=== PATIENT | male | born 1975 | race Caucasian/White ===

== ENCOUNTER 2016-06-30 04:58 | Inpatient (IN) | payer BC, OTHER ==
[2016-06-30] VITALS (10 sets, daily range): BP systolic 121–134; BP diastolic 69–82; PULSE 65–90; TEMP 36.4–36.7; O2SAT 93–97; Ht 160 cm; Wt 109.0 kg
[~2016-06-30] VITALS: Ht 160 cm; Wt 109.0 kg
[~2016-06-30 04:58] MED LIST: HYDR25TA5 PO
[2016-06-30] MEDS ORDERED: ONDANSETRON INJ 2 MG/ML 2 ML VIAL IV STA (05:09)
[2016-06-30] MEDS ORDERED: SODIUM CHLORIDE 0.9% 1000ML 1,000 ML IV ONE (05:15)
[2016-06-30] MEDS ORDERED: OPTIRAY 320 IV PRN (05:15)
[2016-06-30] MEDS ORDERED: FENTANYL CITRATE INJ 50 MCG/1 ML 2 ML VIAL IV ONE (05:15)
[2016-06-30 05:19] LABS: BASO % 0.5 %; BASO ABS # 0.05 K/uL (0-0.2); COMPLETE YES; EOS % 2.3 %; HEMATOCRIT 47.2 % (42-52); IG% 0.2 %; LYMPH % 38.1 %; LYMPH ABS # 3.72 K/uL (1.2-3.4); MEAN CELL VOLUME 89.7 fL (80-100); MEAN CORPUSCULAR HEMOGLOBIN 31.7 pg (25-34); MEAN CORPUSCULAR HGB CONC 35.4 g/dl (32-36); MEAN PLATELET VOLUME 10.5 fL (7.4-10.4); MONO % 12.9 %; PLATELET COUNT 276 K/uL (130-400); RED BLOOD COUNT 5.26 M/uL (4.7-6.1); WHITE BLOOD COUNT 9.76 K/uL (4.8-10.8)
[2016-06-30 05:40] LABS: ALB/GLOB RATIO 1.2 (0.9-2); ALKALINE PHOSPHATASE 97 U/L (45-117); ALT/SGPT 44 U/L (12-78); BLOOD UREA NITROGEN 17 mg/dl (7-18); BUN/CREATININE RATIO 13.9 (10-20); CALCIUM 9.1 mg/dl (8.5-10.1); CARBON DIOXIDE 31 mmol/L (21-32); CHLORIDE 104 mmol/L (98-107); GLUCOSE 98 mg/dl (70-99); SODIUM 142 mmol/L (136-145)
[2016-06-30 05:42] LABS: ISTAT CREATININE 1.1 mg/dl (0.6-1.3); ISTAT HEMOGLOBIN 16.3 g/dl (14.0-18.0); ISTAT IONIZED CALCIUM 1.17 mmol/l (1.12-1.32)
[2016-06-30 05:56] LABS: POTASSIUM 3.4 mmol/L (3.5-5.1)
[2016-06-30] MEDS ORDERED: HYDROmorphone INJ 1 MG/ML SYR IV STA (06:30)
[2016-06-30] MEDS ORDERED: HYDROmorphone INJ 1 MG/ML SYR IV PRN ×4 (06:30→14:30)
[2016-06-30] MEDS ORDERED: HYDROmorphone INJ 1 MG/ML SYR ONE (06:31)
--- NOTE | 2016-06-30 06:44 | EMERGENCY ROOM VISIT NOTE ---
ED Visit Note First contact with patient: 05:00 I have personally evaluated and examined this patient. I agree with assessment and plan of Bo Hanks PA-C.
[2016-06-30] MEDS ORDERED: IRBE1TAB48 PO (06:49)
[2016-06-30] MEDS ORDERED: PANT40TA2 PO (06:49)
[2016-06-30 06:51] LABS: URINE APPEARANCE CLEAR (CLEAR); URINE BILIRUBIN NEG (NEG); URINE COLOR YELLOW; URINE NITRITE NEG (NEG); URINE PH 5.5 (4.5-7.5); URINE SPECIFIC GRAVITY 1.032 (1.000-1.030); UROBILINOGEN NEG (NEG); ZZUR CULT IF INDIC CLEAN CATCH NO
[2016-06-30 06:57] LABS: MANUAL MICROSCOPIC REQUIRED? NO; REVIEW REQ? NO
--- NOTE | 2016-06-30 07:01 | History and Physical ---
History & Physical Date & Time of Service: June 30, 2016 at 06:52 Chief Complaint: abd pain Primary Care Physician: Anthony Tanner M.D. History of Present Illness Source: patient pt is a 40 years old male who presents to ER for 2 months history RUQ pain, worse pain last 3 hours, some nausea, no vomiting, pt denies fever, pt had U/S and CT scan Dx- acute cholecystitis with gallstones, Past Medical/Surgical History Medical Problems: (1) Abdominal pain Status: Resolved (2) Anxiety Status: Chronic (3) Gastritis Status: Resolved (4) Hyperlipidemia Nec/Nos Status: Chronic (5) Hypertension Status: Chronic (6) Hypertension Nos Status: Chronic (7) Lumbago Status: Chronic (8) Rib pain Status: Resolved Surgical Problems: (1) S/P knee surgery Status: Resolved Social History Smoking Status: Never Smoker Smokeless Tobacco Use: No Alcohol Use: occasionally Drug Use: none Marital Status: Occupational Status: employed Multi-Drug Resistant Organisms History of MDRO: No Allergies Coded Allergies: POLLEN (Verified Allergy, Intermediate, CONGESTION, 06/30/16) Home Medications Scheduled Hydrochlorothiazide (Hydrochlorothiazide), 25 MG PO QPM Irbesartan (Irbesartan), 150 MG PO QAM Pantoprazole (Pantoprazole Sodium), 40 MG PO BID Review of Systems Constitutional: No chills, No fatigue, No fever, No problem reported, No sweats , No weakness, No weight loss Eyes: No diplopia, No discharge, No eye pain, No problem reported, No redness, No worsening of vision ENT: No dental problems, No hearing loss, No nasal symptoms, No problem reported, No sore throat, No tinnitus, No trouble swallowing, No unusual epistaxis Respiratory: No cough, No dyspnea at rest, No dyspnea on exertion, No hemoptysis, No problem reported, No shortness of breath, No sputum, No wheezing Cardiovascular: No PND, No chest pain, No claudication, No edema, No orthopnea , No palpitations, No problem reported Abdomen: + nausea (RUQ pain, ), + pain Musculoskeletal: No calf pain, No joint pain, No muscle pain, No problem reported, No swelling Genitourinary - Male: No dysuria, No hematuria, No impotence, No lesions, No penile discharge, No problem reported, No urinary frequency, No urinary hesitancy, No urinary incontinence, No urinary retention, No urinary urgency Neurologic: No balance problems, No memory loss, No numbness/tingling, No paralysis, No problem reported, No vertigo, No weakness Psychiatric: No anhedonism, No anxiety, No depression symptoms, No insomnia, No problem reported, No substance abuse Endocrine: No excessive thirst, No excessive urination, No fatigue, No problem reported Hematologic / Lymphatic: No abnormal bleeding/bruising, No clotting problems, No night sweats, No problem reported, No swollen lymph nodes Physical Exam Vital Signs Date Time Temp Pulse Resp B/P Pulse Ox O2 Delivery O2 Flow Rate FiO2 06/30/16 05:58 79 17 131/74 96 Room Air 06/30/16 05:09 83 06/30/16 05:04 36.6 83 27 145/93 98 Room Air General Appearance: WD/WN, no apparent distress Head: normocephalic Eyes: normal inspection ENT: normal ENT inspection, hearing grossly normal Neck: supple, no adenopathy, no JVD Respiratory/Chest: normal breath sounds Cardiovascular: regular rate, rhythm, no edema, no gallop, no JVD Abdomen/GI: soft, no organomegaly, no pulsatile mass (RUQ tenderness, ), + tenderness Extremities/Musculoskelatal: normal inspection, no calf tenderness, normal capillary refill Neurologic/Psych: no motor/sensory deficits, alert, normal mood/affect Skin: normal color, warm/dry Diagnostics Laboratory Results Results Past 24 Hours Test 06/30/16 04:40 06/30/16 05:29 06/30/16 05:35 06/30/16 06:35 Range/Units White Blood Count 9.76 4.8-10.8 K/uL Red Blood Count 5.26 4.7-6.1 M/uL Hemoglobin 16.7 14.0-18.0 g/dL Hematocrit 47.2 42-52 % Mean Corpuscular Volume 89.7 80-100 fL Mean Corpuscular Hemoglobin 31.7 25-34 pg Mean Corpuscular Hemoglobin Concent 35.4 32-36 g/dl Platelet Count 276 130-400 K/uL Mean Platelet Volume 10.5 7.4-10.4 fL Neutrophils (%) (Auto) 46.0 % Lymphocytes (%) (Auto) 38.1 % Monocytes (%) (Auto) 12.9 % Eosinophils (%) (Auto) 2.3 % Basophils (%) (Auto) 0.5 % Neutrophils # (Auto) 4.49 1.4-6.5 K/uL Lymphocytes # (Auto) 3.72 1.2-3.4 K/uL Monocytes # (Auto) 1.26 0.11-0.59 K/uL Eosinophils # (Auto) 0.22 0-0.5 K/uL Basophils # (Auto) 0.05 0-0.2 K/uL RDW Standard Deviation 42.0 36.4-46.3 fL RDW Coefficient of Variation 12.8 11.5-14.5 % Immature Granulocyte % (Auto) 0.2 % Immature Granulocyte # (Auto) 0.02 0.00-0.02 K/uL Sodium Level 142 136-145 mmol/L Potassium Level 3.4 3.5-5.1 mmol/L Chloride Level 104 98-107 mmol/L Carbon Dioxide Level 31 21-32 mmol/L Anion Gap 7.0 17.0 16-25 mmol/L Blood Urea Nitrogen 17 7-18 mg/dl Creatinine 1.20 0.60-1.40 mg/dl Est Creatinine Clear Calc Drug Dose 89.2 ml/min Estimated GFR () 86.5 Estimated GFR (Non- 74.7 BUN/Creatinine Ratio 13.9 10-20 Random Glucose 98 70-99 mg/dl Calcium Level 9.1 8.5-10.1 mg/dl Total Bilirubin 0.8 0.2-1 mg/dl Aspartate Amino Transf (AST/SGOT) 17 15-37 U/L Alanine Aminotransferase (ALT/SGPT) 44 12-78 U/L Alkaline Phosphatase 97 45-117 U/L Total Protein 7.8 6.4-8.2 gm/dl Albumin 4.3 3.4-5.0 gm/dl Globulin 3.5 2.5-4.0 gm/dl Albumin/Globulin Ratio 1.2 0.9-2 Lipase 156 73-393 U/L Bedside Hemoglobin 16.3 14.0-18.0 g/dl Bedside Hematocrit 48 42-52 % Bedside Sodium 142 135-144 mEq/L Bedside Potassium 3.3 3.3-5.0 mEq/L Bedside Chloride 100 101-112 mEq/L Bedside Total CO2 29 24-31 mEq/l Bedside Blood Urea Nitrogen 18 7-18 mg/dl Bedside Creatinine 1.1 0.6-1.3 mg/dl Bedside Glucose (other) 100 70-99 mg/dl Bedside Ionized Calcium (Lambert) 1.17 1.12-1.32 mmol/l Lactic Acid Level 1.7 0.4-2.0 mmol/L Diagnostic Radiology reviewed- U/S CT scan- gallstone with cholecystitis Impression Assessment and Plan IMP: Acute cholecystitis, cholelithiasis Plan: admit to hospital IV fluid, antibiotic, control pain, pt will have laparoscopic cholecystectomy, possible open or cholangiogram, D/W benefits, risks and alternatives of the procedure, the risks- infection, bleeding, injury CBD, bowel, may need ERCP, , pt and his understood, he and his agree with the plan, I answered all questions, ASA Classification: ASA Class II Level of Care Med/Surg VTE Prophylaxis VTE Risk Assessment Done? Y/N: Yes Risk Level: Moderate Given or contraindicated: SCD's Note Total Time: Critical Care 30 - 74 minutes
--- NOTE | 2016-06-30 07:10 | DIAGNOSTIC IMAGING REPORT ---
ABDOMINAL ULTRASOUND, RIGHT UPPER QUADRANT HISTORY: Severe abdominal pain. COMPARISON: Right upper quadrant ultrasound December 06, [address] of the abdomen and pelvis June 30, 2016. FINDINGS: Increased hepatic echogenicity represents fatty infiltration. The pancreatic body is normal. The head and tail are obscured. Caliber of the common bile duct is at the upper limits of normal, measuring approximately 6 mm. The gallbladder is mildly distended. There is a small amount of sludge within the gallbladder. No gallbladder wall thickening is noted. The 1.1 cm calculus within the gallbladder neck or cystic duct on CT from earlier today is not visualized by sonography. There is no right hydronephrosis. IMPRESSION: 1. Mild gallbladder distention and small amount of sludge within the gallbladder. The 1.1 cm calculus within the gallbladder neck or cystic duct on CT from earlier today is obscured on this exam. Overall, the findings raise the possibility of acute cholecystitis and a hepatobiliary scan could be obtained as indicated. 2. No biliary ductal dilatation. 3. Fatty liver. Electronically signed by: Ad Fung M.D. 06/30/2016 7:09 AM Dictated Date/Time: 06/30/2016 7:03 AM
[2016-06-30] MEDS ORDERED: ONDANSETRON INJ 2 MG/ML 2 ML VIAL IV PRN ×3 (07:15→14:30)
--- NOTE | 2016-06-30 07:42 | DIAGNOSTIC IMAGING REPORT ---
ABDOMEN AND PELVIS CTA WITH IV CONTRAST CT DOSE: 1544.52 mGy.cm HISTORY: Severe mid abdominal pain. TECHNIQUE: Multiaxial CT images of the abdomen and pelvis were performed following the use of intravenous contrast. COMPARISON STUDY: Abdominal ultrasound 12/06/2015. FINDINGS: Linear densities at the lower lobes favor subsegmental atelectasis. No pneumoperitoneum. No pneumatosis. No fractures within the visualized osseous structures. The abdominal aorta is normal in course and caliber. The major branches and iliac vessels are widely patent. Minimal calcified plaque within the distal abdominal aorta. Bilateral renal arteries are patent. No hepatic or splenic masses. The adrenal glands, pancreas, and kidneys are unremarkable. The bladder is mildly distended. There may be minimal pericholecystic inflammatory change. There is an 11 mm stone at the neck of the gallbladder. Normal bladder. No retroperitoneal lymphadenopathy. No bowel wall thickening or obstruction. Normal appendix. IMPRESSION: 1. No evidence for an abdominal aortic aneurysm. The major arterial branches are widely patent. 2. A 1.1 cm stone at the gallbladder neck. There may be minimal pericholecystic inflammatory change. This is concerning for acute cholecystitis. Clinical correlation recommended. 3. No bowel wall thickening or obstruction. Electronically signed by: Daniel Funez M.D. 06/30/2016 7:41 AM Dictated Date/Time: 06/30/2016 7:34 AM
[2016-06-30] MEDS ORDERED: IV FLUIDS COMPLETED PRN (08:45)
[2016-06-30] MEDS: D5W AND 1/2NSS + 20MEQ KCL 1,000 ML IV SCH ×2 (10:17→20:04)
[2016-06-30] MEDS ORDERED: PROPOFOL IV EMULSION 10 MG/ML 20 ML VIAL IV ONE (11:55)
[2016-06-30] MEDS ORDERED: LIDOCAINE HCL 2% 2 ML VIAL (20MG/ML) ONE (11:55)
[2016-06-30] MEDS ORDERED: ONDANSETRON INJ 2 MG/ML 2 ML VIAL ONE (11:55)
[2016-06-30] MEDS ORDERED: GLYCOPYRROLATE INJ 0.2 MG/ML VIAL ONE (11:55)
[2016-06-30] MEDS ORDERED: NEOSTIGMINE METHYLSULFATE 5 MG/5 ML SYR ONE (11:55)
[2016-06-30] MEDS ORDERED: ROCURONIUM BROMIDE 10 MG/ML 5 ML VIAL ONE (11:55)
[2016-06-30] MEDS ORDERED: DEXAMETHASONE SOD INJ 4 MG/ML VIAL ONE (11:55)
[2016-06-30] MEDS ORDERED: MIDAZOLAM HCL 1 MG/ML 2ML VIAL ONE (11:56)
[2016-06-30] MEDS ORDERED: FENTANYL CITRATE INJ 50 MCG/1 ML 2 ML VIAL ONE ×2 (11:56→12:59)
[2016-06-30] MEDS ORDERED: LIDOCAINE HCL 1% 20 ML VIAL ONE (12:06)
[2016-06-30] MEDS ORDERED: BACITRACIN OINT 15 GM TUBE ONE (12:06)
[2016-06-30] MEDS ORDERED: BUPIVACAINE 0.5 % 5 MG/1 ML MPF 30ML VIAL ONE (12:06)
--- NOTE | 2016-06-30 12:11 | History & Physical Bridge Note ---
H&P Re-Evaluation Bridge Note: I have examined the patient, reviewed the History & Physical and in the interval since the performance of the History & Physical I have noted the following changes of clinical significance: No changes noted
[2016-06-30] MEDS ORDERED: CEFAZOLIN IV 2,000 MG/60 ML D5W IV ONE (12:17)
[2016-06-30] MEDS ORDERED: PHENYLEPHRINE 100MCG/ML 5ML SYR IV PRN (12:30)
[2016-06-30] MEDS ORDERED: EpHEDrine SULFATE INJ 50 MG/ML AMP IV PRN (12:30)
[2016-06-30] MEDS ORDERED: ATROPINE SULFATE 0.1 MG/ML 5ML SYR IV PRN (12:30)
[2016-06-30] MEDS ORDERED: MoRPHine SULFATE 2 MG/ML CARP ONE (13:04)
[2016-06-30] MEDS ORDERED: LABETALOL HCL IV 5 MG/ML 20ML IV ONE (13:13)
[2016-06-30] MEDS ORDERED: D5W AND 1/2NSS + 20MEQ KCL 1,000 ML IV SCH (14:21)
--- NOTE | 2016-06-30 14:21 | [facility] Post Operative Brief Note ---
Immediate Operative Summary Operative Date June 30, 2016. Pre-Operative Diagnosis Acute Cholecystitis, Cholelithiasis Post-Operative Diagnosis Acute Cholecystitis, Cholelithiasis Procedure(s) Performed Laparoscopic Cholecystectomy Surgeon Dr. Joshi Attorney Surgeon(s) DRE Almaguer Estimated Blood Loss 15 ml Findings significant inflammation on gallbladder wall with edema, thickening Fluids (cc crystalloids) 1000ml Specimens A. Gallbladder Drains none Anesthesia general Complication(s) None Disposition Recovery Room / PACU
[2016-06-30] MEDS ORDERED: ACETAMINOPHEN 325 MG TAB PO PRN (14:30)
[2016-06-30] MEDS ORDERED: OXYCODONE/ACETAMINOPHEN 5-325 TAB PO PRN (14:30)
[2016-06-30] MEDS: HYDROmorphone INJ 2 MG/ML SYR/VIAL IV PRN ×3 (14:46→14:56)
--- NOTE | 2016-06-30 15:10 | Anesthesiology Progress Note ---
Anesthesia Post Op Note Date & Time June 30, 2016 at 15:09 Vital Signs Pain Intensity: 6 Vital Signs Past 12 Hours Date Time Temp Pulse Resp B/P Pulse Ox O2 Delivery O2 Flow Rate FiO2 06/30/16 14:50 114/70 06/30/16 14:49 73 20 98 06/30/16 14:49 72 20 06/30/16 14:45 125/75 06/30/16 14:44 79 20 06/30/16 14:44 79 20 98 06/30/16 14:40 92/65 06/30/16 14:39 78 13 06/30/16 14:39 78 13 98 06/30/16 14:37 116/66 06/30/16 14:34 84 16 06/30/16 14:34 84 16 95 06/30/16 14:30 110/74 06/30/16 14:29 85 19 06/30/16 14:29 36.5 82 20 120/81 98 Mask 10 06/30/16 14:29 85 19 120/81 98 06/30/16 08:44 36.6 77 16 121/81 94 Room Air 06/30/16 08:20 36.6 77 16 121/81 Room Air 06/30/16 08:13 Room Air 06/30/16 07:41 96 Room Air 06/30/16 05:58 79 17 131/74 96 Room Air 06/30/16 05:09 83 06/30/16 05:04 36.6 83 27 145/93 98 Room Air Notes Mental Status: alert / awake / arousable, participated in evaluation Pt Amnestic to Procedure: Yes Nausea / Vomiting: adequately controlled Pain: adequately controlled Airway Patency, RR, SpO2: stable & adequate BP & HR: stable & adequate Hydration State: stable & adequate Anesthetic Complications: no major complications apparent
[2016-06-30] MEDS: PIPERACILL/TAZOBAC IV 3.375 GM in DEXTROSE 5% 100ML 100 ML IV SCH ×2 (16:15→22:00)
[2016-06-30] MEDS ORDERED: NURSING VERBAL MED ORDER ONE (20:45)
[2016-06-30] MEDS: HYDROCODONE/ACETAMOPHEN 5/325MG TAB PO PRN ×2 (21:56→23:57)
--- NOTE | 2016-06-30 22:01 | EMERGENCY ROOM VISIT NOTE ---
History First contact with patient: 05:00 Chief Complaint: ABDOMINAL PAIN Stated Complaint: ACUTE CHOLECYSTITIS Nursing Triage Summary: pt arrives ALS from work. 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 pt with sever mid upper abdominal pain that started at 0230. hx Reflux. pt was pale, diaphoretic for EMS. 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 The patient was evaluated by the medical staff at the facility and was noted to be pale and diaphoretic. The patient's discomfort was rated a 10/10 and EMS was contacted. Patient was given fentanyl and Zofran through his IV prehospital. On arrival the patient appears in significant discomfort and is nauseated. He has not had fever or chills. His last meal was about 6 hours ago. He does not have recent URI symptoms. No diarrhea or recent antibiotic use. The patient does have a history of hypertension does not report other complaints. Review of Systems More than 10 systems were reviewed and otherwise negative with the exception of history of present illness. Past Medical/Surgical History Medical Problems: (1) Abdominal pain (2) Acute cholecystitis (3) Anxiety (4) Anxiety State Nos (5) Gastritis (6) History Of Tobacco Use (7) Hyperlipidemia Nec/Nos (8) Hypertension (9) Hypertension Nos (10) Lumbago (11) Rib pain Surgical Problems: (1) S/P knee surgery Family History No pertinent family history Social History Smoking Status: Never Smoker Smokeless Tobacco Use: No Alcohol Use: none Drug Use: none Marital Status: Housing Status: lives with family Occupation Status: employed Current/Historical Medications Scheduled Hydrochlorothiazide (Hydrochlorothiazide), 25 MG PO QPM Irbesartan (Irbesartan), 150 MG PO QAM Pantoprazole (Pantoprazole Sodium), 40 MG PO BID Allergies Coded Allergies: POLLEN (Verified Allergy, Intermediate, CONGESTION, 06/30/16) Physical Exam Vital Signs Date Time Temp Pulse Resp B/P Pulse Ox O2 Delivery O2 Flow Rate FiO2 06/30/16 07:41 96 Room Air 06/30/16 05:58 79 17 131/74 96 Room Air 06/30/16 05:09 83 06/30/16 05:04 36.6 83 27 145/93 98 Room Air Pain Rating (0-10): 0 Physical Exam VITALS: Vitals are noted on the nurse's note and reviewed by myself. Vital signs stable. GENERAL: Well-developed, well-nourished, white male who appears in severe discomfort. He is rolling in his emergency department bed trying to remain comfortable. He is diaphoretic but overall cooperative. HEART: Regular rate and rhythm without murmurs gallops or rubs. LUNGS: Clear to auscultation bilaterally without wheezes, rales or rhonchi. No retractions or accessory muscle use. ABDOMEN: Positive normal bowel sounds x 4. Soft with generalized central abdominal tenderness. No pulsatile mass appreciated. No CVA tenderness. No lower abdominal tenderness. MUSCULOSKELETAL: No muscle atrophy, erythema, or edema noted. Full range of motion without joint tenderness in all extremities Medical Decision & Procedures ER Provider Diagnostic Interpretation: ABDOMEN AND PELVIS CTA WITH IV CONTRAST CT DOSE: 1544.52 mGy.cm HISTORY: Severe mid abdominal pain. TECHNIQUE: Multiaxial CT images of the abdomen and pelvis were performed following the use of intravenous contrast. COMPARISON STUDY: Abdominal ultrasound 12/06/2015. FINDINGS: Linear densities at the lower lobes favor subsegmental atelectasis. No pneumoperitoneum. No pneumatosis. No fractures within the visualized osseous structures. The abdominal aorta is normal in course and caliber. The major branches and iliac vessels are widely patent. Minimal calcified plaque within the distal abdominal aorta. Bilateral renal arteries are patent. No hepatic or splenic masses. The adrenal glands, pancreas, and kidneys are unremarkable. The bladder is mildly distended. There may be minimal pericholecystic inflammatory change. There is an 11 mm stone at the neck of the gallbladder. Normal bladder. No retroperitoneal lymphadenopathy. No bowel wall thickening or obstruction. Normal appendix. IMPRESSION: 1. No evidence for an abdominal aortic aneurysm. The major arterial branches are widely patent. 2. A 1.1 cm stone at the gallbladder neck. There may be minimal pericholecystic inflammatory change. This is concerning for acute cholecystitis. Clinical correlation recommended. 3. No bowel wall thickening or obstruction. ABDOMINAL ULTRASOUND, RIGHT UPPER QUADRANT HISTORY: Severe abdominal pain. COMPARISON: Right upper quadrant ultrasound December 06, [address] of the abdomen and pelvis June 30, 2016. FINDINGS: Increased hepatic echogenicity represents fatty infiltration. The pancreatic body is normal. The head and tail are obscured. Caliber of the common bile duct is at the upper limits of normal, measuring approximately 6 mm. The gallbladder is mildly distended. There is a small amount of sludge within the gallbladder. No gallbladder wall thickening is noted. The 1.1 cm calculus within the gallbladder neck or cystic duct on CT from earlier today is not visualized by sonography. There is no right hydronephrosis. IMPRESSION: 1. Mild gallbladder distention and small amount of sludge within the gallbladder. The 1.1 cm calculus within the gallbladder neck or cystic duct on CT from earlier today is obscured on this exam. Overall, the findings raise the possibility of acute cholecystitis and a hepatobiliary scan could be obtained as indicated. 2. No biliary ductal dilatation. 3. Fatty liver. Laboratory Results 06/30/16 04:40 Red Blood Count 5.26, Mean Corpuscular Volume 89.7, Mean Corpuscular Hemoglobin 31.7, Mean Corpuscular Hemoglobin Concent 35.4, Mean Platelet Volume 10.5, Neutrophils (%) (Auto) 46.0, Lymphocytes (%) (Auto) 38.1, Monocytes (%) (Auto) 12.9, Eosinophils (%) (Auto) 2.3, Basophils (%) (Auto) 0.5, Neutrophils # (Auto ) 4.49, Lymphocytes # (Auto) 3.72, Monocytes # (Auto) 1.26, Eosinophils # (Auto ) 0.22, Basophils # (Auto) 0.05 06/30/16 04:40 06/30/16 05:35 Test 06/30/16 04:40 06/30/16 05:29 06/30/16 05:35 06/30/16 06:35 White Blood Count 9.76 K/uL (4.8-10.8) Red Blood Count 5.26 M/uL (4.7-6.1) Hemoglobin 16.7 g/dL (14.0-18.0) Hematocrit 47.2 % (42-52) Mean Corpuscular Volume 89.7 fL (80-100) Mean Corpuscular Hemoglobin 31.7 pg (25-34) Mean Corpuscular Hemoglobin Concent 35.4 g/dl (32-36) Platelet Count 276 K/uL (130-400) Mean Platelet Volume 10.5 fL (7.4-10.4) Neutrophils (%) (Auto) 46.0 % Lymphocytes (%) (Auto) 38.1 % Monocytes (%) (Auto) 12.9 % Eosinophils (%) (Auto) 2.3 % Basophils (%) (Auto) 0.5 % Neutrophils # (Auto) 4.49 K/uL (1.4-6.5) Lymphocytes # (Auto) 3.72 K/uL (1.2-3.4) Monocytes # (Auto) 1.26 K/uL (0.11-0.59) Eosinophils # (Auto) 0.22 K/uL (0-0.5) Basophils # (Auto) 0.05 K/uL (0-0.2) RDW Standard Deviation 42.0 fL (36.4-46.3) RDW Coefficient of Variation 12.8 % (11.5-14.5) Immature Granulocyte % (Auto) 0.2 % Immature Granulocyte # (Auto) 0.02 K/uL (0.00-0.02) Est Creatinine Clear Calc Drug Dose 89.2 ml/min Estimated GFR () 86.5 Estimated GFR (Non- 74.7 BUN/Creatinine Ratio 13.9 (10-20) Calcium Level 9.1 mg/dl (8.5-10.1) Total Bilirubin 0.8 mg/dl (0.2-1) Alanine Aminotransferase (ALT/SGPT) 44 U/L (12-78) Alkaline Phosphatase 97 U/L (45-117) Total Protein 7.8 gm/dl (6.4-8.2) Albumin 4.3 gm/dl (3.4-5.0) Globulin 3.5 gm/dl (2.5-4.0) Albumin/Globulin Ratio 1.2 (0.9-2) Lipase 156 U/L (73-393) Bedside Hemoglobin 16.3 g/dl (14.0-18.0) Bedside Hematocrit 48 % (42-52) Bedside Sodium 142 mEq/L (135-144) Bedside Potassium 3.3 mEq/L (3.3-5.0) Bedside Chloride 100 mEq/L (101-112) Bedside Total CO2 29 mEq/l (24-31) Anion Gap 17.0 mmol/L (16-25) Bedside Blood Urea Nitrogen 18 mg/dl (7-18) Bedside Creatinine 1.1 mg/dl (0.6-1.3) Bedside Glucose (other) 100 mg/dl (70-99) Bedside Ionized Calcium (Lambert) 1.17 mmol/l (1.12-1.32) Lactic Acid Level 1.7 mmol/L (0.4-2.0) Aspartate Amino Transf (AST/SGOT) 17 U/L (15-37) Urine Color YELLOW Urine Appearance CLEAR (CLEAR) Urine pH 5.5 (4.5-7.5) Urine Specific [place] 1.032 (1.000-1.030) Urine Protein NEG (NEG) Urine Glucose (UA) NEG (NEG) Urine Ketones NEG (NEG) Urine Occult Blood NEG (NEG) Urine Nitrite NEG (NEG) Urine Bilirubin NEG (NEG) Urine Urobilinogen NEG (NEG) Urine Leukocyte Esterase NEG (NEG) Medications Administered Medications (Trade) Dose Ordered Sig/Nathan Route Start Time Stop Time Status Last Admin Dose Admin Fentanyl Citrate 150 mcg 150 mcg NOW ONCE IV 06/30/16 05:15 06/30/16 05:16 DC 06/30/16 05:52 50 MCG Sodium Chloride (Nss 1000ml) 1,000 ml @ 999 mls/hr Q1H1M ONCE IV 06/30/16 05:15 06/30/16 06:15 DC 06/30/16 05:23 999 MLS/HR Ondansetron HCl (Zofran Inj) 4 mg NOW STAT IV 06/30/16 05:09 06/30/16 05:13 DC 06/30/16 05:22 4 MG Hydromorphone HCl (Dilaudid Inj) 1 mg NOW STAT IV 06/30/16 06:30 06/30/16 06:31 DC 06/30/16 06:38 1 MG Ondansetron HCl (Zofran Inj) 4 mg Q4H PRN IV 06/30/16 07:15 07/30/16 07:14 06/30/16 20:04 4 MG Hydromorphone HCl (Dilaudid Inj) 1 mg Q3H PRN IV 06/30/16 07:15 07/14/16 07:14 06/30/16 18:16 1 MG ED Course Physical exam and history were performed. Nursing notes and EMR were reviewed. Patient appears to have severe midabdominal pain of acute onset that he rates a 10/10. 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 The patient was given 150 g of fentanyl here in the department. Out of concern for the severity and acute onset of his symptoms I did elect perform a CT angiogram of the abdomen and pelvis to rule out dissection. Additionally review of EMR shows the patient has had some biliary issues in the past, and his symptoms could represent cholecystitis. Because of this an ultrasound of the abdomen was also performed. The patient's blood work is as above and was reviewed. He does not have a significant elevated white blood cell count or gross anemia, bandemia, or significant electrolyte imbalance. Lipase and transaminases are nondiagnostic. The patient CT scan does not show aneurysm or dissection, but does show a 1.1 cm gallstone in the neck of the gallbladder. This was not visualized on ultrasound, however ultrasound was concerning for possible early cholecystitis. Clinically this would correlate with the patient's symptoms. The patient was given additional pain medication as above, and the case was discussed with my attending physician, Dr. Sanders, who remained closely involved in patient care. The case was then discussed with the on-call surgeon , Dr. Joshi, who agreed to evaluate the patient here in the ER. Please see Dr. Joshi's dictation for further patient course, plan, and disposition. The chart was completed utilizing [employer] Speech Voice Recognition Software. Grammatical errors, random word insertions, pronoun errors, and incomplete sentences are an occasional consequence of this system due to software limitations, ambient noise, and hardware issues. Any formal questions or concerns about the content, text, or information contained within the body of this dictation should be directly addressed to the provider for clarification. . Medical Decision Differential diagnosis: Etiologies such as appendicitis, diverticulitis, PUD, biliary pathology, UTI, pancreatitis, obstruction, mesenteric ischemia, aortic pathology, infections, inflammatory bowel disease, renal colic, as well as others were entertained. Impression Primary Impression: Acute cholecystitis Departure Information Dispostion Still a Patient Condition GOOD Referrals Anthony Tanner M.D. (PCP) Forms Call Back Authorization, HOME CARE DOCUMENTATION FORM, IMPORTANT VISIT INFORMATION Patient Instructions My [facility]
[2016-07-01] MEDS: HYDROCODONE/ACETAMOPHEN 5/325MG TAB PO PRN (03:54)
[2016-07-01 04:02] VITALS: BP 125/83; PULSE 69; TEMP 36.5; O2SAT 95
[2016-07-01] MEDS ORDERED: CEFAZOLIN IV 2,000 MG/60 ML D5W IV ONE (06:00)
[2016-07-01] MEDS: PIPERACILL/TAZOBAC IV 3.375 GM in DEXTROSE 5% 100ML 100 ML IV SCH (06:07)
--- NOTE | 2016-07-01 07:17 | OPERATIVE REPORT ---
DATE OF OPERATION: 06/30/2016 PREOPERATIVE DIAGNOSIS: Acute cholecystitis, cholelithiasis. POSTOPERATIVE DIAGNOSIS: Same. PROCEDURE: Laparoscopic cholecystectomy. SURGEON: Pablito Joshi MD PARLIAMENTARY ARCHIVIST: Liz Gonzalez PA-C ANESTHESIA: General. ESTIMATED BLOOD LOSS: About 15 mL. IV FLUIDS: 1000 mL. FINDINGS: Significant severe acute cholecystitis with gallbladder wall thickening, edema and cholelithiasis. COMPLICATIONS: None. INDICATIONS FOR THE PROCEDURE: This is a 40-year-old gentleman, who presented to the ED with a 2-month history of right upper quadrant pain. The patient had an ultrasound and CT diagnosed with acute cholecystitis with gallstones. The patient will be required to do laparoscopic cholecystectomy, possible open, possible cholangiogram. I did talk to the patient and patient's about the benefits, risks and alternate procedure. I indicated the risks may include but not limited such as bleeding, infection, injury to common bile duct, injury to bowel, may need ERCP, bile leak and even . They understand. The patient signed informed consent. I answered all questions. DETAILS OF THE PROCEDURE: We brought the patient to the OR and put the patient in the supine position. The patient received SCDs on bilateral legs to prevent DVT. Also, the patient received 2 grams Ancef IV for prophylactic antibiotic. The patient received general anesthesia without difficulty. The abdomen was prepped and draped in routine sterile fashion. After time out, I injected local anesthesia by using 1% lidocaine mixed with 0.25% Marcaine just above umbilicus and then we made a small incision just above umbilicus, opened fascia and opened peritoneum under direct vision. I put a Ji trocar in, connected to CO2. Flow rate is 6 liters per minute and pressure not more than 14 mmHg. Once we got a nice pneumoperitoneum, we put a 10 mm camera in to look around the abdomen showing no more findings on the stomach, small bowel, large bowel or liver; however, there was significant omentum covering the gallbladder. The gallbladder shows significant gallbladder wall thickening, edema and focal gangrene. Then we put another 3.5 mm trocar in the right upper quadrant. Once all trocars were in, I put another grasper in to hold the base of the gallbladder and then we peeled low down the omentum covers of the gallbladder and again showing significant inflammation of the gallbladder, even focal gangrene. Then I put another grasper in to hold the pouch over the gallbladder, put in the direction to expose the triangle of Calot. The cystic duct was identified, mobilized and then I put a trocar from 10 mm instead of 5 mm on epigastric area, Based on the gallstone stuck in the cystic duct I use a 10 mm metal clip. I put two 10 mm metal clips on the proximal side of the cystic duct and on the distal cystic duct. I used scissor to transect the cystic duct. Then the cystic artery was identified and mobilized. I put two 10 mm metal clips; on the proximal cystic artery and on the distal cystic artery. I used scissor to transect the cystic artery. Then I used Bovie to take down the gallbladder without difficulty. I rechecked; no active bleeding, no bile leak. Then we removed the gallbladder through the catch bag. Then we reinserted Ji trocar in and connected CO2 to create pneumoperitoneum again, looked around the abdomen; no bile leak and no active bleeding from the liver bed. Then we removed all trocars under direct vision. No active bleeding from the trocar sites. The 10 mm trocar site was closed, we used endosuture, to passed the suture in and then sutured all to close the 10 mm trocar site and then the umbilical incision site. I closed the fascial layer by using #1 Vicryl [id number] x2, closed the subcutaneous layer by using 2-0 Vicryl, closed skin by using 4-0 Vicryl and another two 5-mm trocar site. I closed skin by using 4-0 Vicryl only. Then, we put the dressing on. The patient tolerated the procedure well. All the instrument, needle and sponge counts were correct x2 at the end of case. After the procedure, I did talk to the patient about the OR finding and procedure I did; they understand. We will follow up. The patient was transferred to the recovery room in stable condition. I attest to the content of the Intraoperative Record and any orders documented therein. Any exceptions are noted below. KYAW
[2016-07-01 07:25] VITALS: BP 136/91; PULSE 75; TEMP 36.5; O2SAT 96
[2016-07-01 07:52] LABS: COMPLETE YES; HEMATOCRIT 43.2 % (42-52); IG% 0.3 %; LYMPH % 11.9 %; MEAN CELL VOLUME 90.6 fL (80-100); MEAN CORPUSCULAR HEMOGLOBIN 31.7 pg (25-34); MEAN PLATELET VOLUME 10.5 fL (7.4-10.4); MONO % 9.4 %; NEUT % 78.4 %; PLATELET COUNT 234 K/uL (130-400); RED BLOOD COUNT 4.77 M/uL (4.7-6.1)
--- NOTE | 2016-07-01 08:24 | Anesthesiology Progress Note ---
Anesthesia Post Op Note Date & Time July 01, 2016 at 08:25 Vital Signs Pain Intensity: 7.0 Vital Signs Past 12 Hours Date Time Temp Pulse Resp B/P Pulse Ox O2 Delivery O2 Flow Rate FiO2 07/01/16 07:25 36.5 75 18 136/91 96 Room Air 07/01/16 07:15 Room Air 07/01/16 04:02 36.5 69 18 125/83 95 Room Air 07/01/16 00:00 Room Air 06/30/16 23:00 36.6 90 18 129/82 93 Room Air Notes Mental Status: alert / awake / arousable, participated in evaluation Pt Amnestic to Procedure: Yes Nausea / Vomiting: adequately controlled Pain: adequately controlled Airway Patency, RR, SpO2: stable & adequate BP & HR: stable & adequate Hydration State: stable & adequate Anesthetic Complications: no major complications apparent
[2016-07-01 08:37] LABS: ALB/GLOB RATIO 1.4 (0.9-2); CREATININE 0.89 mg/dl (0.60-1.40); POTASSIUM 3.5 mmol/L (3.5-5.1)
[2016-07-01 08:50] LABS: CALCIUM 9.3 mg/dl (8.5-10.1)
--- NOTE | 2016-07-01 09:20 | Surgery Progress Note ---
Surgery Progress Note Date of Service July 01, 2016. Subjective Post OP Day: 1 + ambulating, + diet (tolerated full liquids, hungry), + feeling well, + pain controlled (with oral and iV pain meds), No SOB, No chest pain, No nausea, No vomiting Objective Vital Signs: Date Time Temp Pulse Resp B/P Pulse Ox O2 Delivery O2 Flow Rate FiO2 07/01/16 07:25 36.5 75 18 136/91 96 Room Air 07/01/16 07:15 Room Air 07/01/16 04:02 36.5 69 18 125/83 95 Room Air 07/01/16 00:00 Room Air 06/30/16 23:00 36.6 90 18 129/82 93 Room Air 06/30/16 18:53 36.7 74 16 126/69 95 Nasal Cannula 2.0 06/30/16 17:48 36.6 77 16 129/82 97 Nasal Cannula 2.0 06/30/16 16:46 65 16 133/79 95 Nasal Cannula 2.0 06/30/16 16:12 36.4 68 16 132/81 93 Nasal Cannula 2.0 06/30/16 15:43 36.5 80 18 134/81 93 3.0 06/30/16 15:40 93 Nasal Cannula 3.0 06/30/16 15:40 93 Nasal Cannula 3.0 06/30/16 15:12 36.6 80 20 109/74 98 Mask 10 06/30/16 14:50 114/70 06/30/16 14:49 73 20 98 06/30/16 14:49 72 20 06/30/16 14:45 125/75 06/30/16 14:44 79 20 06/30/16 14:44 79 20 98 06/30/16 14:40 92/65 06/30/16 14:39 78 13 06/30/16 14:39 78 13 98 06/30/16 14:37 116/66 06/30/16 14:34 84 16 06/30/16 14:34 84 16 95 06/30/16 14:30 110/74 06/30/16 14:29 85 19 06/30/16 14:29 36.5 82 20 120/81 98 Mask 10 06/30/16 14:29 85 19 120/81 98 General Appearance: WD/WN, no apparent distress Head: normocephalic, atraumatic Neck: trachea midline Respiratory/Chest: lungs clear, normal breath sounds, no respiratory distress, no accessory muscle use, + pertinent finding (slight splinting when taking deep breath) Cardiovascular: regular rate, rhythm, no murmur Abdomen: non distended, soft, + tenderness (appropriate post op) Incision(s): clean, dry (there are some markings on dressing where there was drainage post op, ) Laboratory Results: Results Past 24 Hours Test 07/01/16 07:17 Range/Units White Blood Count 11.80 4.8-10.8 K/uL Red Blood Count 4.77 4.7-6.1 M/uL Hemoglobin 15.1 14.0-18.0 g/dL Hematocrit 43.2 42-52 % Mean Corpuscular Volume 90.6 80-100 fL Mean Corpuscular Hemoglobin 31.7 25-34 pg Mean Corpuscular Hemoglobin Concent 35.0 32-36 g/dl Platelet Count 234 130-400 K/uL Mean Platelet Volume 10.5 7.4-10.4 fL Neutrophils (%) (Auto) 78.4 % Lymphocytes (%) (Auto) 11.9 % Monocytes (%) (Auto) 9.4 % Eosinophils (%) (Auto) 0.0 % Basophils (%) (Auto) 0.0 % Neutrophils # (Auto) 9.26 1.4-6.5 K/uL Lymphocytes # (Auto) 1.40 1.2-3.4 K/uL Monocytes # (Auto) 1.11 0.11-0.59 K/uL Eosinophils # (Auto) 0.00 0-0.5 K/uL Basophils # (Auto) 0.00 0-0.2 K/uL RDW Standard Deviation 42.5 36.4-46.3 fL RDW Coefficient of Variation 13.0 11.5-14.5 % Immature Granulocyte % (Auto) 0.3 % Immature Granulocyte # (Auto) 0.03 0.00-0.02 K/uL Sodium Level 141 136-145 mmol/L Potassium Level 3.5 3.5-5.1 mmol/L Chloride Level 105 98-107 mmol/L Carbon Dioxide Level 26 21-32 mmol/L Anion Gap 10.0 3-11 mmol/L Blood Urea Nitrogen 8 7-18 mg/dl Creatinine 0.89 0.60-1.40 mg/dl Est Creatinine Clear Calc Drug Dose 120.1 ml/min Estimated GFR () 123.1 Estimated GFR (Non- 106.2 BUN/Creatinine Ratio 9.0 10-20 Random Glucose 109 70-99 mg/dl Calcium Level 9.3 8.5-10.1 mg/dl Total Bilirubin 1.0 0.2-1 mg/dl Direct Bilirubin 0.1 0-0.2 mg/dl Aspartate Amino Transf (AST/SGOT) 33 15-37 U/L Alanine Aminotransferase (ALT/SGPT) 49 12-78 U/L Alkaline Phosphatase 49 45-117 U/L Total Protein 6.2 6.4-8.2 gm/dl Albumin 3.6 3.4-5.0 gm/dl Globulin 2.6 2.5-4.0 gm/dl Albumin/Globulin Ratio 1.4 0.9-2 Assessment & Plan POD # 1 s/p laparoscopic cholecystectomy - vitals stable - slight leukocytosis of 11.8 - afebrile - abdomen soft, tenderness appropriate post op - tolerated full liquids - ambulating and urinating without difficulty Plan: Advance diet to regular diet Discharge patient today Rx for Colman prn pain given to patient Follow-up in office 1 week Discharge instructions as given Dr. Joshi has seen patient and agrees with above
--- NOTE | 2016-07-01 09:23 | Discharge Instructions ---
Discharge Instructions Date of Service July 01, 2016. Admission Reason for Admission: Acute Cholecystitis Discharge Discharge Diagnosis / Problem: acute cholecystitis, s/p laparoscopic cholecystectomy Discharge Goals Goal(s): Decrease discomfort Activity Recommendations Activity Limitations: as noted below No heavy lifting over 10 pounds or strenuous activity for 2 weeks Walking is encouraged to prevent blood clots No driving while taking narcotic pain medication . Instructions / Follow-Up Instructions / Follow-Up You may shower in 3 days and remove dressings. In meantime you may sponge bath Steri strips can be removed in 7 days , if they fall off before that is okay You may take Ibuprofen with the Narcotic however do not take Tylenol until you are no longer taking the narcotic Follow-up with Dr. Joshi in 1 week, please call office at [phone] to make an appointment Current Hospital Diet Patient's current hospital diet: Regular Diet Discharge Diet Recommended Diet: Regular Diet Procedures Procedures Performed: Laparoscopic Cholecystectomy Pending Studies Studies pending at discharge: no Medical Emergencies . Who to Call and When: Medical Emergencies: If at any time you feel your situation is an emergency, please call 911 immediately. . Non-Emergent Contact Non-Emergency issues call your: Primary Care Provider, Surgeon Call Non-Emergent contact if: you have a fever, temperature is above 101.5, your pain is not controlled, your pain is worsening, wound has increased drainage, wound has increased redness, wound has increased pain . "Provider Documentation" section prepared by Liz Gonzalez. . VTE Core Measure Inpt VTE Proph given/why not?: SCD's [place] Drug Monitoring Program Search Results: patient reviewed within database, no issues identified
[2016-07-01] MEDS: D5W AND 1/2NSS + 20MEQ KCL 1,000 ML IV SCH (09:52)
[2016-07-01] MEDS ORDERED: HYDR-5688 PO (10:49)
--- NOTE | 2016-07-03 14:38 | Discharge Summary ---
Discharge Summary Dates Admission Date / Time: June 30, 2016 at 08:08 Discharge Date: July 01, 2016 Dispostion / Condition Discharge Disposition: Home Condition at Discharge: Good Principal Diagnosis (1) Acute cholecystitis Consultations / Procedures Consultations: None Procedures: Laparoscopic Cholecystectomy Pending Studies / Follow-Up pathology pending Medication Reconciliation New Medications: Hydrocodone/Acetaminophen 5MG/325MG ([place] 5MG/325MG) Tab 1-2 TABLETS PO Q4 PRN for Pain, #30 TAB PRN PAIN Continued Medications: Hydrochlorothiazide (Hydrochlorothiazide) 25 Mg Tab 25 MG PO QPM Irbesartan (Irbesartan) 150 Mg Tab 150 MG PO QAM Pantoprazole (Pantoprazole Sodium) 40 Mg Tab 40 MG PO BID Admission HPI Per the Admitting provider: pt is a 40 years old male who presents to ER for 2 months history RUQ pain, worse pain last 3 hours, some nausea, no vomiting, pt denies fever, pt had U/S and CT scan Dx- acute cholecystitis with gallstones, Admission Exam Per the Admitting provider: General Appearance: WD/WN, no apparent distress Head: normocephalic Eyes: normal inspection ENT: normal ENT inspection, hearing grossly normal Neck: supple, no adenopathy, no JVD Respiratory/Chest: normal breath sounds Cardiovascular: regular rate, rhythm, no edema, no gallop, no JVD Abdomen/GI: soft, no organomegaly, no pulsatile mass (RUQ tenderness, ), + tenderness Extremities/Musculoskelatal: normal inspection, no calf tenderness, normal capillary refill Neurologic/Psych: no motor/sensory deficits, alert, normal mood/affect Skin: normal color, warm/dry Hospital Course (1) Acute cholecystitis Patient was taken to the operating room for laparoscopic cholecystectomy. Patient tolerated procedure well and was transferred to PACU and then Med/Surg floor in stable condition. Patient was started on Full liquids diet, IV and oral narcotic prn pain, Zofran, and IV fluids. Patient had slight reaction to the Percocet therefore [place] was ordered instead. POD # 1 patient feeling okay. Preoperative pain resolved just very tender at incision sites. He tolerated full liquids, ambulated and urinated without difficulty and pain controlled with medications. He was discharged home on POD # 1 in stable condition. Overall hospital course was uneventful. Discharge Instructions as given to patient Copies To Primary Care Provider: Anthony Tanner M.D..
--- NOTE | 2016-07-06 14:01 | DISCHARGE SUMMARY ---
ADMITTING DIAGNOSES: Acute cholecystitis and cholelithiasis. DISCHARGE DIAGNOSES: Same. OPERATION: Laparoscopic cholecystectomy. SURGEON: Dr. Adi Kenney. DETAILS OF DISCHARGE SUMMARY: This is a 40-year-old gentleman who presented to the ED with acute abdominal pain. The patient had an ultrasound that shows acute cholecystitis with gallstone. The patient required to be admitted to the hospital and we did a laparoscopic cholecystectomy on 06/30/2016. The patient tolerated the procedure well and next day, I saw the patient. The patient was doing fine. The vital signs were stable. The patient has no nausea, no vomiting, and good control of incision pain. PHYSICAL EXAMINATION: HEENT: Within normal limitation. NEUROLOGICALLY: Intact. CHEST: Bilateral lung sounds clear. HEART: Normal S1 and S2. No murmur. ABDOMEN: Soft. No tenderness, only incision pain. Not distended. Bowel sounds positive. All the incisions were intact. EXTREMITIES: No edema. PLAN: The patient wanted to go home today that is 07/01/2016. I gave the patient the postop care instructions. I will follow up the patient in 1 week. The patient understands.
== END 2016-07-01 11:32 | disposition home or self-care (01) | DRG 419 ==
LOC: ENRESERVDT → ENRESERVTM → EDBD 04:58 → C.EDB 04:59 → C.MSN 08:08 → EDBEDREQ 08:12
PROVIDERS: ADMIT Surgery; ATTEND Surgery
PROC: 0FT44ZZ Resection of Gallbladder, Percutaneous Endoscopic Approach (ICD-10-PCS; principal; 2016-06-30 12:30)
DX: K80.00 Calculus of gallbladder with acute cholecystitis without obstruction (principal); I10 Essential (primary) hypertension; Z79.899 Other long term (current) drug therapy

== ENCOUNTER 2025-02-05 02:34 | Inpatient (IN) ==
[2025-02-05] MEDS: SODIUM CHLORIDE 0.9% 1,000 ML IV ONE (02:53)
[2025-02-05] MEDS: ONDANSETRON INJ 2 MG/ML 2 ML VIAL IV STA (02:54)
[2025-02-05] MEDS: ACETAMINOPHEN 1,000 MG/100 ML VIAL IV STA (02:54)
[2025-02-05] MEDS: MoRPHine SULFATE 4 MG/ML 1 ML CARP\\VIAL IV PRN ×2 (02:54→07:07)
[2025-02-05 03:10] LABS: Hematocrit (blood only) 45.7 % (42.0-52.0); Hemoglobin 16.7 g/dL (14.0-18.0); Immature Granulocytes # (auto) 0.02 K/uL (0.01-0.20); Immature Granulocytes % (auto) 0.3 %; Mean Corpuscular Hemoglobin 32.9 pg (25.0-34.0); Mean Corpuscular Volume 90.1 fL (80.0-100.0); Platelet Count 209 K/uL (130-400); RDW Standard Deviation 40.7 fL (36.4-46.3); Red Blood Count 5.07 M/uL (4.70-6.10); White Blood Count 6.37 K/ul (4.8-10.8)
[2025-02-05 03:12] LABS: Appearance Urine Clear (Clear); Glucose Urine UA Negative (Negative)
[2025-02-05 03:22] LABS: Albumin Level 4.2 gm/dl (3.4-5.0); Anion Gap 9.0 (3-11); Bilirubin,Total 3.6 mg/dl (0.2-1.0); Calcium 9.1 mg/dl (8.6-10.3); Carbon Dioxide 24.0 mmol/L (21-32); Chloride 103.0 mmol/L (98-107); Magnesium 1.7 mg/dl (1.7-2.4); Potassium 3.8 mmol/L (3.5-5.1); Sodium 136.0 mmol/L (136-145)
[2025-02-05 03:29] LABS: Alanine Aminotransferase 363.0 U/L (7-52); Albumin Globulin Ratio 1.5 (0.9-2); Alkaline Phosphatase 75.0 U/L (34-104); Blood Urea Nitrogen 7.0 mg/dl (6-23); Creatinine Clr Calc Pharmacy 122.6 ml/min; Globulin 2.8 gm/dl (2.5-4.0); Glucose 117.0 mg/dl (70-99(Fasting)); Lipase 27.0 U/L (11-82); Total Protein 7.0 gm/dl (6.0-8.3)
[2025-02-05] MEDS: OPTIRAY 320 100ml IV ONE (03:46)
--- NOTE | 2025-02-05 04:49 | Emergency Department Note ---
History of Present Illness General Chief complaint: Abdominal Pain Stated complaint: SEVERE ABDOMINAL PAIN Time Seen by Provider: 02/05/25 02:44 History of Present Illness Maximum Pain Intensity: 5 This is a 49-year-old male presenting to the emergency department for evaluation of mid abdominal pain for the past 1 day. Patient states that he is having episodic and worsening abdominal pain that he currently rates a 5/10. He has not had nausea or vomiting. He feels like he is using the bathroom as normal. Past surgical history does include cholecystectomy. No recent travel history. He is unable to get comfortable or sleep because of the extent of the pain. Patient does drink alcohol fairly regularly, but nothing tonight. No new medication changes. Home Medications Medication Instructions Recorded Confirmed Type Hydrochlorothiazide 25 mg PO QPM ##0 02/08/14 02/05/25 History Pantoprazole (Pantoprazole Sodium) 40 mg PO BID ##0 06/30/16 02/05/25 History efinaconazole 10 % topical 1 applic topical DAILY 02/05/25 02/05/25 History solution with applicator (Jublia) montelukast 10 mg tablet 10 mg PO QAM 02/05/25 02/05/25 History propranolol 60 mg capsule,24 60 mg PO QAM 02/05/25 02/05/25 History hr,extended release sildenafil 20 - 60 mg PO USEASDIRECTD PRN 02/05/25 02/05/25 History Erectile Dysfunction Allergies Allergy/AdvReac Type Severity Reaction Status Date / Time pollen extracts Allergy Intermediate CONGESTION Verified 06/30/16 06:47 Past Med/Surg History Problem List (Updated 02/05/25 @ 06:06 by Esteban Daniel MD) Cholangitis Elevated LFTs (Acute) Acute abdominal pain (Acute) History of cholecystitis Knee pain (Acute) Social History Smoking Status: Never smoker Preferred Language: Faroese Feels Safe at Home: Yes Review of Systems A total of 10 systems reviewed and were otherwise negative Physical Exam Vital Signs Vital Signs - 24 hr 02/05/25 02:41 02/05/25 02:44 02/05/25 02:53 Temperature 36.8 C Temperature Source Temporal Artery Scan Pulse Rate 88 82 87 Pulse Rate [Apical] Pulse Rhythm Regular Respiratory Rate 18 Respiratory Effort / Characteristics Non-Labored Spontaneous Respiratory Depth Normal Respiratory Pattern Regular Blood Pressure 152/112 H Blood Pressure [Right Arm] Blood Pressure Mean 125 Blood Pressure Mean [Right Arm] Blood Pressure Position Sitting Pulse Oximetry 97 99 Oxygen Delivery Method Room Air Room Air Sepsis Recent Fever Within 48 Hours No Sepsis New/Unexplained Change in Mental Status N/A Sepsis Action Taken by Nursing No Action Required 02/05/25 04:03 02/05/25 06:00 Temperature 36.4 C Temperature Source Oral Pulse Rate Pulse Rate [Apical] 86 73 Pulse Rhythm Respiratory Rate 20 15 Respiratory Effort / Characteristics Non-Labored Spontaneous Non-Labored Spontaneous Respiratory Depth Normal Normal Respiratory Pattern Regular Regular Blood Pressure Blood Pressure [Right Arm] 140/95 138/94 Blood Pressure Mean Blood Pressure Mean [Right Arm] 110 108 Blood Pressure Position Pulse Oximetry 96 95 Oxygen Delivery Method Room Air Room Air Sepsis Recent Fever Within 48 Hours Sepsis New/Unexplained Change in Mental Status Sepsis Action Taken by Nursing VITALS: Vitals are noted on the nurse's note and reviewed by myself. Vital signs stable. GENERAL: Well-developed, well-nourished, white male, who is quite uncomfortable on arrival to the ER. HEAD: Normocephalic atraumatic. NECK: Supple without nuchal rigidity. No lymphadenopathy. No thyromegaly. Cervical spine is nontender. HEART: Regular rate and rhythm without murmurs gallops or rubs. LUNGS: Clear to auscultation bilaterally without wheezes, rales or rhonchi. No retractions or accessory muscle use. ABDOMEN: Positive normal bowel sounds x 4. Soft, nontender, without masses or organomegaly. No guarding or rebound tenderness. MUSCULOSKELETAL: No muscle atrophy, erythema, or edema noted. Full range of motion in all extremities. Course Administered Medications Sodium Chloride (Nss) 1,000 mls @ 60 mls/hr IV .[id number] STA Stop: 02/05/25 22:03 Last Admin: 02/05/25 05:53 Dose: 60 mls/hr Documented By: NAY Discontinued Medications Sodium Chloride (Nss) 1,000 mls @ 999 mls/hr IV .[id number] ONE Stop: 02/05/25 03:49 Last Infusion: 02/05/25 03:55 Dose: Infused Documented By: Admin: 02/05/25 02:53 Dose: 999 mls/hr Documented By: NAY Acetaminophen (Ofirmev) 1,000 mg in 100 mls @ 400 mls/hr IV NOW STA Stop: 02/05/25 03:03 Last Infusion: 02/05/25 03:11 Dose: Infused Documented By: Admin: 02/05/25 02:54 Dose: 400 mls/hr Documented By: NAY Piperacillin Sod/Tazobactam Sod (Zosyn) 4.5 gm in 100 mls @ 200 mls/hr IV ONE STA; Protocol Stop: 02/05/25 05:52 Last Admin: 02/05/25 05:50 Dose: 200 mls/hr Documented By: NAY Thiamine HCl 100 mg/ Syringe 10 mls @ 2 mls/min IV NOW STA Stop: 02/05/25 05:26 Last Admin: 02/05/25 05:51 Dose: 2 mls/min Documented By: NAY Ioversol (Optiray 320 100ml) 95 ml IV ONCE ONE Stop: 02/05/25 03:46 Last Admin: 02/05/25 03:46 Dose: 95 ml Documented By: ASIF Morphine Sulfate (Morphine Sulfate 4 Mg/Ml 1 Ml Carp\Vial) 4 mg IV Q30M PRN PRN Reason: Pain Stop: 02/19/25 02:48 Last Admin: 02/05/25 02:54 Dose: 4 mg Documented By: NAY Ondansetron HCl (Ondansetron Inj 2 Mg/Ml 2 Ml Vial) 4 mg IV NOW STA Stop: 02/05/25 02:50 Last Admin: 02/05/25 02:54 Dose: 4 mg Documented By: NAY Medical Decision Making Differential Diagnosis Differential diagnosis: Etiologies such as biliary colic, cholecystitis, hepatitis, pancreatitis, cardiac disease, pancreatitis, gastritis, peptic ulcer disease, appendicitis, cystitis, diverticulitis, mesenteric ischemia, inflammatory bowel disease, ileus, bowel obstruction, testicular/adnexal torsion, aortic pathology, shingles, as well as others were considered Laboratory Data 02/05/25 02:44 02/05/25 02:48 Lab Results 02/05/25 02/05/25 Range/Units 02:44 02:48 WBC 6.37 (4.8-10.8) K/ul RBC 5.07 (4.70-6.10) M/uL Hgb 16.7 (14.0-18.0) g/dL Hct 45.7 (42.0-52.0) % MCV 90.1 (80.0-100.0) fL MCH 32.9 (25.0-34.0) pg MCHC 36.5 H (32.0-36.0) g/dL RDW Std Deviation 40.7 (36.4-46.3) fL RDW Coeff of Robert 12.4 (11.5-14.5) % Plt Count 209 (130-400) K/uL MPV 10.3 (9.4-12.4) fL Immature Gran % (Auto) 0.3 % Neut % (Auto) 69.4 % Lymph % (Auto) 17.3 % [place] % (Auto) 11.3 % Eos % (Auto) 1.1 % Baso % (Auto) 0.6 % Neut # (Auto) 4.42 (1.40-6.50) K/uL Lymph # (Auto) 1.10 L (1.20-3.40) K/uL [place] # (Auto) 0.72 H (0.11-0.59) K/uL Eos # (Auto) 0.07 (0.00-0.50) K/uL Baso # (Auto) 0.04 (0.00-0.20) K/uL Immature Gran # (Auto) 0.02 (0.01-0.20) K/uL Sodium 136 (136-145) mmol/L Potassium 3.8 (3.5-5.1) mmol/L Chloride 103 (98-107) mmol/L Carbon Dioxide 24 (21-32) mmol/L Anion Gap 9 (3-11) BUN 7 (6-23) mg/dl Creatinine 0.79 (0.6-1.4) mg/dl Est Cr Clr Drug Dosing 122.6 ml/min eGFR 108.23 BUN/Creatinine Ratio 8.9 L (10-20) Glucose 117 H (70-99(Fasting)) mg/dl Lactate 1.2 (0.4-2.0) mmol/L Calcium 9.1 (8.6-10.3) mg/dl Magnesium 1.7 (1.7-2.4) mg/dl Total Bilirubin 3.6 H (0.2-1.0) mg/dl AST 499 H (13-39) U/L ALT 363 H (7-52) U/L Alkaline Phosphatase 75 (34-104) U/L Troponin I High Sens 4.7 (0-20) pg/ml Total Protein 7.0 (6.0-8.3) gm/dl Albumin 4.2 (3.4-5.0) gm/dl Globulin 2.8 (2.5-4.0) gm/dl Albumin/Globulin Ratio 1.5 (0.9-2) Lipase 27 (11-82) U/L Urine Color Dark Yellow Urine Appearance Clear (Clear) Urine pH 5.5 (4.5-7.5) Ur Specific [place] 1.013 (1.000-1.030) Urine Protein Negative (Negative) Urine Glucose (UA) Negative (Negative) Urine Ketones Negative (Negative) Urine Blood Negative (Negative) Urine Nitrite Negative (Negative) Urine Bilirubin 1+ H (Negative) Urine Urobilinogen Negative (Negative) Ur Leukocyte Esterase Negative (Negative) Urine Comment Ethyl Alcohol mg/dL < 10.0 (<10.0) mg/dl Imaging Data Radiologist's Impression: Abdomen/Pelvis CT 02/05/25 02:49 EXAM: CT abd pelvis IV con only CLINICAL HISTORY: mid abd pain TECHNIQUE: Contiguous axial images were obtained from the level of the diaphragm to the pubic symphysis with intravenous contrast. Coronal and sagittal reconstructions were likewise performed and indicated to increase the sensitivity for detecting clinically relevant pathology. If IV contrast material had not been administered, the likelihood of detecting abnormalities relevant to the patient's condition would have been substantially decreased. CT scan was performed according to ALARA (as low as reasonably achievable). COMPARISON: 04:43:37 PROSTHETIC MAKEUP DESIGNER. FINDINGS: The visualized lung bases are clear. The liver is normal in size and reduced attenuation. No focal liver lesions are seen. There is no intra or extrahepatic biliary ductal dilatation. Hepatic vasculature is patent. Status post-cholecystectomy. Subtle fat stranding is noted adjacent to the common bile duct- possibility of inflammatory etiology( could be cholangitis)- LFT correlation suggested. The spleen, pancreas, and adrenal glands are unremarkable. The kidneys are normal in size and attenuation. There is no hydronephrosis or perinephric fat stranding. No renal calculi or renal masses are identified. The ureters are normal in caliber and no ureteral calculi are seen. The bladder is normal in contour. Pelvic viscera are unremarkable. No focal or diffuse bowel wall thickening or evidence of bowel obstruction is identified. No imaging evidence of appendicitis. Abdominal and pelvic vasculature is patent. No adenopathy or fluid collections are seen. No aggressive appearing osseous lesions are identified. Diffuse atherosclerotic calcification is noted involving aorta iliac arteries. Multiple small uncomplicated colonic diverticulosis. IMPRESSION: Hepatic steatosis.-stable. Status post-cholecystectomy. Subtle fat stranding is noted adjacent to the common bile duct- possibility of inflammatory etiology( could be cholangitis)- LFT correlation suggested.-new finding. Multiple small uncomplicated colonic diverticulosis.-stable. No other new interval abnormality since prior study. Electronically signed by Placido Chance 02-05-2025 05:04 AM MDM Narrative Physical exam and history were performed. Nursing notes, EMR, and Medication List were personally reviewed. No social concerns were identified as barriers to patients care. History was provided by the Patient and who is at bedside. Patient appears to have abdominal pain for the past 1 day. Symptoms are primarily periumbilical and somewhat epigastric. Patient appears quite uncomfortable on arrival. IV access was established and labs were obtained. He was hydrated normal saline and given IV morphine and IV Zofran for comfort. Patient sent to CT scan for imaging of his abdomen and pelvis. Patient's blood work is as above and was reviewed. He does not have a significant elevated white blood cell count, gross anemia, bandemia, or significant electrolyte imbalance. Transaminases are markedly elevated of unknown etiology. Lipase normal. CT scan independently reviewed by myself and radiology and may suggest cholangitis. Escalation of care was considered, and felt to be necessary at this time. The cause of the patient's symptoms is not distinct at this time and certainly cholangitis or alcohol would be high on the differential. Case was discussed with the on-call hospitalist team who agreed to evaluate the patient here in the ER. I also reached out to Dr. Ponce of GI, who is comfortable following the case. Please see specialist dictation for ongoing care and evaluation. The chart was completed utilizing [employer] Voice Recognition Software. Grammatical errors, random word insertions, pronoun errors, and incomplete sentences are an occasional consequence of this system due to software limitations, ambient noise, and hardware issues. Any formal questions or concerns about the content, text, or information contained within the body of this dictation should be directly addressed to the provider for clarification. Impression & Plan Acute abdominal pain, Elevated LFTs Discharge Plan Visit Data Chief Complaint: Abdominal Pain Stated Complaint: SEVERE ABDOMINAL PAIN ED Provider: Adal Corral ED Midlevel Provider: Bo Hanks Discharge Problem: Acute abdominal pain, Elevated LFTs Patient Disposition: Home - Self-Care Condition: Good Discharge Instructions Activity Restrictions/Additional Instructions: Forms Stand Alone Forms: [facility], Important Visit Information Prescriptions Prescriptions: No Action Hydrochlorothiazide 25 MG tablet 25 mg PO QPM Qty: 0 Pantoprazole (Pantoprazole Sodium) 40 MG tablet 40 mg PO BID Qty: 0 propranolol 60 mg capsule,extended release 24 hr 60 mg PO QAM montelukast 10 mg tablet 10 mg PO QAM Jublia 10 % solution with applicator 1 applic TOPICAL DAILY sildenafil 20 mg tablet 20 - 60 mg PO USEASDIRECTD PRN (Reason: Erectile Dysfunction) Referrals Referrals: Lance Maxwell MD [Primary Care Provider] -
--- NOTE | 2025-02-05 05:04 | CT Scan Report ---
EXAM: CT abd pelvis IV con only CLINICAL HISTORY: mid abd pain TECHNIQUE: Contiguous axial images were obtained from the level of the diaphragm to the pubic symphysis with intravenous contrast. Coronal and sagittal reconstructions were likewise performed and indicated to increase the sensitivity for detecting clinically relevant pathology. If IV contrast material had not been administered, the likelihood of detecting abnormalities relevant to the patient's condition would have been substantially decreased. CT scan was performed according to ALARA (as low as reasonably achievable). COMPARISON: 04:43:37 BACKSIDE GRINDER. FINDINGS: The visualized lung bases are clear. The liver is normal in size and reduced attenuation. No focal liver lesions are seen. There is no intra or extrahepatic biliary ductal dilatation. Hepatic vasculature is patent. Status post-cholecystectomy. Subtle fat stranding is noted adjacent to the common bile duct- possibility of inflammatory etiology( could be cholangitis)- LFT correlation suggested. The spleen, pancreas, and adrenal glands are unremarkable. The kidneys are normal in size and attenuation. There is no hydronephrosis or perinephric fat stranding. No renal calculi or renal masses are identified. The ureters are normal in caliber and no ureteral calculi are seen. The bladder is normal in contour. Pelvic viscera are unremarkable. No focal or diffuse bowel wall thickening or evidence of bowel obstruction is identified. No imaging evidence of appendicitis. Abdominal and pelvic vasculature is patent. No adenopathy or fluid collections are seen. No aggressive appearing osseous lesions are identified. Diffuse atherosclerotic calcification is noted involving aorta iliac arteries. Multiple small uncomplicated colonic diverticulosis. IMPRESSION: Hepatic steatosis.-stable. Status post-cholecystectomy. Subtle fat stranding is noted adjacent to the common bile duct- possibility of inflammatory etiology( could be cholangitis)- LFT correlation suggested.-new finding. Multiple small uncomplicated colonic diverticulosis.-stable. No other new interval abnormality since prior study. Electronically signed by Placido Chance 02-05-2025 05:04 AM
--- NOTE | 2025-02-05 05:13 | History & Physical Report ---
Date of Service February 05, 2025 Assessment & Plan (1) Cholangitis: Plan: Assessment and plan below following discussion of case with ED provider and reviewing patient history/pertinent normal/abnormal diagnostic test results. Cholangitis No sepsis for now hypertension, stable reactive airway disease as per records, stable alcohol abuse Hyperglycemia rule out DM Admit to med/tele given propensity for alcohol withdrawal Zosyn for possible cholangitis GI consult re: possible cholangitis (ED provider already in touch with Dr. Ponce.) N.p.o. in anticipation of procedure TREVOR S at risk protocol, DT precautions Check hemoglobin A1c DVT prophylaxis. SCDs re: possible procedure Full code Text document was generated using [employer] voice recognition software. It may contain grammatical or spelling errors. Kindly contact undersigned for clarification of any documentation item in question. History of Present Illness Chief Complaint: Abdominal pain Primary Care Provider: Lance Maxwell MD History obtained from patient, family, and records. Medical history significant for hypertension, reactive airway disease as per records, KATHLEEN on CPAP, GERD, alcohol abuse. Last confinement 2016 under General Surgery service for acute calculous cholecystitis status postcholecystectomy. 2 days history of intermittent achy upper abdominal pain which initially woke him up from sleep. Some nausea, no emesis. Some improvement after intake of home Linzess which resulted in bowel movement. Patient had recurrent pain yesterday. Admits to drinking alcohol at a social gathering. No improvement with antacid Rx. No fever, no chills. No chest pain, no SOB. Patient consulted ER for worsening symptoms. 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 Allergies Allergy/AdvReac Type Severity Reaction Status Date / Time pollen extracts Allergy Intermediate CONGESTION Verified 06/30/16 06:47 Home Medications Medication Instructions Recorded Confirmed Type Hydrochlorothiazide 25 mg PO QPM ##0 02/08/14 02/05/25 History Pantoprazole (Pantoprazole Sodium) 40 mg PO BID ##0 06/30/16 02/05/25 History efinaconazole 10 % topical 1 applic topical DAILY 02/05/25 02/05/25 History solution with applicator (Jublia) montelukast 10 mg tablet 10 mg PO QAM 02/05/25 02/05/25 History propranolol 60 mg capsule,24 60 mg PO QAM 02/05/25 02/05/25 History hr,extended release sildenafil 20 - 60 mg PO USEASDIRECTD PRN 02/05/25 02/05/25 History Erectile Dysfunction Past Med/Surg History Problem List (Updated 02/05/25 @ 06:06 by Esteban Daniel MD) Cholangitis Elevated LFTs (Acute) Acute abdominal pain (Acute) History of cholecystitis Knee pain (Acute) Social History Smoking Status: Never smoker Preferred Language: French Feels Safe at Home: Yes Review of Systems Review of Systems: As per HPI, all other systems reviewed and negative Physical Exam Physical Exam: GENERAL: Comfortable, pleasant, obese, slightly anxious, no respiratory distress SKIN: Normal color, warm HEENT: Alopecia, [place] palpebral conjunctivae, no ptosis, dry buccal mucosa NECK : Supple, no tenderness CHEST : CTA, no tenderness HEART : RRR, no obvious murmurs ABDOMEN: Some distention, epigastric tenderness EXTREMITIES : No LE swelling/tenderness, palpable pulses, no other conspicuous deformities noted NEUROLOGIC : Coherent, no facial asymmetry, no other gross focality Results & Data Results & Data Vital Signs (Past 12 Hours) Vital Signs Temp Pulse Pulse Resp BP BP Pulse Ox 02/05/25 04:03 86 20 140/95 96 02/05/25 02:53 87 02/05/25 02:44 82 99 02/05/25 02:41 36.8 C 88 18 152/112 H 97 O2 Del Method 02/05/25 04:03 Room Air 02/05/25 02:53 02/05/25 02:44 Room Air 02/05/25 02:41 Room Air Laboratory Results Laboratory Results WBC 6.37 K/ul (4.8-10.8) 02/05/25 02:44 RBC 5.07 M/uL (4.70-6.10) 02/05/25 02:44 Hgb 16.7 g/dL (14.0-18.0) 02/05/25 02:44 Hct 45.7 % (42.0-52.0) 02/05/25 02:44 MCV 90.1 fL (80.0-100.0) 02/05/25 02:44 MCH 32.9 pg (25.0-34.0) 02/05/25 02:44 MCHC 36.5 g/dL (32.0-36.0) H 02/05/25 02:44 RDW Std Deviation 40.7 fL (36.4-46.3) 02/05/25 02:44 RDW Coeff of Robert 12.4 % (11.5-14.5) 02/05/25 02:44 Plt Count 209 K/uL (130-400) 02/05/25 02:44 MPV 10.3 fL (9.4-12.4) 02/05/25 02:44 Immature Gran % (Auto) 0.3 % 02/05/25 02:44 Neut % (Auto) 69.4 % 02/05/25 02:44 Lymph % (Auto) 17.3 % 02/05/25 02:44 [place] % (Auto) 11.3 % 02/05/25 02:44 Eos % (Auto) 1.1 % 02/05/25 02:44 Baso % (Auto) 0.6 % 02/05/25 02:44 Neut # (Auto) 4.42 K/uL (1.40-6.50) 02/05/25 02:44 Lymph # (Auto) 1.10 K/uL (1.20-3.40) L 02/05/25 02:44 [place] # (Auto) 0.72 K/uL (0.11-0.59) H 02/05/25 02:44 Eos # (Auto) 0.07 K/uL (0.00-0.50) 02/05/25 02:44 Baso # (Auto) 0.04 K/uL (0.00-0.20) 02/05/25 02:44 Immature Gran # (Auto) 0.02 K/uL (0.01-0.20) 02/05/25 02:44 Sodium 136 mmol/L (136-145) 02/05/25 02:48 Potassium 3.8 mmol/L (3.5-5.1) 02/05/25 02:48 Chloride 103 mmol/L (98-107) 02/05/25 02:48 Carbon Dioxide 24 mmol/L (21-32) 02/05/25 02:48 Anion Gap 9 (3-11) 02/05/25 02:48 BUN 7 mg/dl (6-23) 02/05/25 02:48 Creatinine 0.79 mg/dl (0.6-1.4) 02/05/25 02:48 Est Cr Clr Drug Dosing 122.6 ml/min 02/05/25 02:48 eGFR 108.23 02/05/25 02:48 BUN/Creatinine Ratio 8.9 (10-20) L 02/05/25 02:48 Glucose 117 mg/dl (70-99(Fasting)) H 02/05/25 02:48 Lactate 1.2 mmol/L (0.4-2.0) 02/05/25 02:48 Calcium 9.1 mg/dl (8.6-10.3) 02/05/25 02:48 Magnesium 1.7 mg/dl (1.7-2.4) 02/05/25 02:48 Total Bilirubin 3.6 mg/dl (0.2-1.0) H 02/05/25 02:48 AST 499 U/L (13-39) H 02/05/25 02:48 ALT 363 U/L (7-52) H 02/05/25 02:48 Alkaline Phosphatase 75 U/L (34-104) 02/05/25 02:48 Troponin I High Sens 4.7 pg/ml (0-20) 02/05/25 02:48 Total Protein 7.0 gm/dl (6.0-8.3) 02/05/25 02:48 Albumin 4.2 gm/dl (3.4-5.0) 02/05/25 02:48 Globulin 2.8 gm/dl (2.5-4.0) 02/05/25 02:48 Albumin/Globulin Ratio 1.5 (0.9-2) 02/05/25 02:48 Lipase 27 U/L (11-82) 02/05/25 02:48 Urine Color Dark Yellow 02/05/25 02:48 Urine Appearance Clear (Clear) 02/05/25 02:48 Urine pH 5.5 (4.5-7.5) 02/05/25 02:48 Ur Specific [place] 1.013 (1.000-1.030) 02/05/25 02:48 Urine Protein Negative (Negative) 02/05/25 02:48 Urine Glucose (UA) Negative (Negative) 02/05/25 02:48 Urine Ketones Negative (Negative) 02/05/25 02:48 Urine Blood Negative (Negative) 02/05/25 02:48 Urine Nitrite Negative (Negative) 02/05/25 02:48 Urine Bilirubin 1+ (Negative) H 02/05/25 02:48 Urine Urobilinogen Negative (Negative) 02/05/25 02:48 Ur Leukocyte Esterase Negative (Negative) 02/05/25 02:48 Urine Comment 02/05/25 02:48 Ethyl Alcohol mg/dL < 10.0 mg/dl (<10.0) 02/05/25 02:48 Impressions Abdomen/Pelvis CT 02/05/25 02:49 EXAM: CT abd pelvis IV con only CLINICAL HISTORY: mid abd pain TECHNIQUE: Contiguous axial images were obtained from the level of the diaphragm to the pubic symphysis with intravenous contrast. Coronal and sagittal reconstructions were likewise performed and indicated to increase the sensitivity for detecting clinically relevant pathology. If IV contrast material had not been administered, the likelihood of detecting abnormalities relevant to the patient's condition would have been substantially decreased. CT scan was performed according to ALARA (as low as reasonably achievable). COMPARISON: 04:43:37 HEAD FILTER PRESS TENDER. FINDINGS: The visualized lung bases are clear. The liver is normal in size and reduced attenuation. No focal liver lesions are seen. There is no intra or extrahepatic biliary ductal dilatation. Hepatic vasculature is patent. Status post-cholecystectomy. Subtle fat stranding is noted adjacent to the common bile duct- possibility of inflammatory etiology( could be cholangitis)- LFT correlation suggested. The spleen, pancreas, and adrenal glands are unremarkable. The kidneys are normal in size and attenuation. There is no hydronephrosis or perinephric fat stranding. No renal calculi or renal masses are identified. The ureters are normal in caliber and no ureteral calculi are seen. The bladder is normal in contour. Pelvic viscera are unremarkable. No focal or diffuse bowel wall thickening or evidence of bowel obstruction is identified. No imaging evidence of appendicitis. Abdominal and pelvic vasculature is patent. No adenopathy or fluid collections are seen. No aggressive appearing osseous lesions are identified. Diffuse atherosclerotic calcification is noted involving aorta iliac arteries. Multiple small uncomplicated colonic diverticulosis. IMPRESSION: Hepatic steatosis.-stable. Status post-cholecystectomy. Subtle fat stranding is noted adjacent to the common bile duct- possibility of inflammatory etiology( could be cholangitis)- LFT correlation suggested.-new finding. Multiple small uncomplicated colonic diverticulosis.-stable. No other new interval abnormality since prior study. Electronically signed by Placido Chance 02-05-2025 05:04 AM
[2025-02-05] MEDS ORDERED: LORazepam 0.5 MG TAB PO PRN (05:16)
[2025-02-05] MEDS ORDERED: PROMETHAZINE 12.5 MG/50.5 ML BAG IV PRN (05:16)
[2025-02-05] MEDS ORDERED: LORazepam Inj 1 MG in SYRINGE 0.5 ML IV PRN (05:18)
[2025-02-05] MEDS: PIPERACILLIN/TAZOBACTAM 4.5 GM/100 ML BAG IV STA (05:50)
[2025-02-05] MEDS: THIAMINE HCL 100 MG in SYRINGE 9 ML IV STA (05:51)
[2025-02-05] MEDS: SODIUM CHLORIDE 0.9% 1,000 ML IV STA (05:53)
--- NOTE | 2025-02-05 06:26 | Communication Note ---
Notified by ER of patient, suspect CBD stone but normal CBD size on CT, hx etoh use ..... Check MRCP pre ERCP
[2025-02-05 06:33] LABS: INR 1.0 (0.9-1.1); Prothrombin Time 10.8 Seconds (9.0-12.0)
[2025-02-05] MEDS ORDERED: MONTELUKAST SODIUM 10 MG TABLET PO SCH (09:00)
[2025-02-05] MEDS ORDERED: PROPRANOLOL HCL 60 MG LA CAP PO SCH (09:00)
[2025-02-05] MEDS ORDERED: MULTIVITAMIN TAB PO SCH (09:00)
[2025-02-05] MEDS ORDERED: FOLIC ACID 1 MG TAB PO SCH (09:00)
[2025-02-05] MEDS: MONTELUKAST SODIUM 10 MG TABLET PO SCH (10:42)
[2025-02-05] MEDS: FOLIC ACID 1 MG TAB PO SCH (10:42)
[2025-02-05] MEDS: MULTIVITAMIN TAB PO SCH (10:42)
[2025-02-05] MEDS: PROPRANOLOL HCL 60 MG LA CAP PO SCH (10:43)
--- NOTE | 2025-02-05 11:05 | Magnetic Resonance Report ---
MRCP CLINICAL HISTORY: Right upper quadrant abdominal pain. COMPARISON STUDY: Abdominal CT dated 02/05/2025. Abdominal ultrasound dated 06/30/2016. TECHNIQUE: Abdominal MRCP was performed utilizing various T2 sequences in the axial and coronal plane s. Diffusion weighted imaging was utilized. 3-D reformats are created and assessed. IV contrast was n ot administered for this examination. FINDINGS: The gallbladder is surgically absent. There is no intra or extrahepatic biliary ductal dilatation. Th e common bile duct measures up to 6 mm in diameter. There are no intraluminal filling defects to sugg est choledocholithiasis. The pancreatic duct is normal in caliber. There are likely stones/debris wit hin a cystic duct remnant. This is best seen on the coronal reformatted MRCP image #104. The liver is enlarged, measuring 18.6 cm in length. There is evidence of steatosis. The unenhanced sp chris, pancreas, adrenal glands, and kidneys are grossly unremarkable. The abdominal aorta is normal i n caliber. The imaged bowel shows evidence of obstruction. Diverticulosis is noted in the colon. Ther e is no abdominal ascites. No lymphadenopathy is seen. There is no pleural effusion. The heart is nor mal in size and without pericardial effusion. IMPRESSION: 1. Status post cholecystectomy. 2. No intra or extrahepatic biliary ductal dilatation is seen and there is no evidence of choledochol ithiasis. Infiltration around the common bile duct was better appreciated on today's CT scan. 3. There are likely stones within a cystic duct remnant. 4. The liver is enlarged and steatotic. 5. Additional findings as above. Dictated: 02/05/2025 10:40 AM Transcribed: 02/05/2025 11:03 AM Kylie [id number] JEOVANNY_Salomón [id number] Electronically signed by: Lobito Johnson M.D. 02/05/2025 11:04 AM
--- NOTE | 2025-02-05 12:44 | Gastrointestinal Consultation ---
Date of Consultation February 05, 2025 Assessment & Plan (1) Elevated LFTs: (2) Acute abdominal pain: Plan Patient admitted with abdominal pain with initial concern for cholangitis. Reviewed MRCP results with Dr. Ponce. - Updated LFTs returned fairly stable. Will plan to update again tomorrow morning to trend. - Can hold on ERCP for now. But will make NPO at midnight tonight and reassess labs in the AM. - Further recommendations to come with Supervising GI provider on medical rounds. Please see co-signature comments. Supervising Physician Co-Signing Physician Notes Reviewed with DRE Anna, discussed with patient and at the bedside. Reviewed imaging studies. Patient states his symptoms are exactly similar to previous gallbladder attacks prior to cholecystectomy 5 years ago. He has no chills rigors to suggest active cholangitis. White count is normal. However imaging does show some edema surrounding the bile duct which could be consistent with infectious etiology or inflammation. Symptoms suggestive of a common duct stone yet he does not have biliary dilatation. MRCP also did not show a stone in the bile duct itself. He does have stones within the cystic duct remnant. T hese are not extractable typically with usual ERCP. Surgical intervention sometimes required for removal of the cystic duct with stones. Alternative lithotripsy and then stone extraction by ERCP. Question if this point is as does he have biliary obstruction from a common duct stone. Liver enzyme repeat remained elevated. His pain is 2 to 3% better which is not a lot. He is afebrile. Abdomen is benign other than some epigastric discomfort. Impression possible common duct stone versus alcohol effect. He drinks 5-6 beers per day. Could have a cystic stump syndrome with stones and Mirizzi's type syndrome. Plan will be to observe clinical course. Recheck liver enzymes tomorrow. If the enzymes are persistently elevated worsening or signs of infection proceed with ERCP. Discussed risks of ERCP with the patient which include pancreatitis. Not likely would we be able to resolve the cystic duct stones. If pain settling liver enzymes normal follow without ERCP. Consider surgical consultation regards to the cystic duct stones. History of Present Illness Reason for Consultation: possible cholangitis Requesting Physician: Esteban Daniel MD Attending Physician: Ramón Thayer DO History of Present Illness Patient is a 49 year old male who presented to the ED on 02/05 for evaluation of mid epigastric abdominal pain that started over the weekend. Patient states that he is having episodic and worsening abdominal pain that he currently rates a 5/10. He has not had nausea or vomiting. He feels like he is using the bathroom as normal though initially had thought some of this was related to constipation as it did improve somewhat after using linzess. Yet, symptoms did return worse. Upon work up, he had CT concerning for cholangitis. Since admission, he does feel somewhat better, but he is not sure if this is because he has received medications for his pain. the rest of the GI ros are unremarkable. 02/05/25 wbc 6.37, hgb 16.7, hct 45.7, plts 209, INR 1, Na 136, K 3.8, BUN 7, Cr 0.79, T bili 3.6, AST 499, ALT 363, Alk 75, lipase 27. CT 02/05/25 CT A/P - Hepatic steatosis.-stable. Status post-cholecystectomy. Subtle fat stranding is noted adjacent to the common bile duct- possibility of inflammatory etiology( could be cholangitis)- LFT correlation suggested.-new finding. Multiple small uncomplicated colonic diverticulosis.-stable. No other new interval abnormality since prior study. MRCP 02/05/25 1. Status post cholecystectomy. No intra or extrahepatic biliary ductal dilatation is seen and there is no evidence of choledocholithiasis. Infiltration around the common bile duct was better appreciated on today's CT scan. There are likely stones within a cystic duct remnant. The liver is enlarged and steatotic. Allergies Allergy/AdvReac Type Severity Reaction Status Date / Time pollen extracts Allergy Intermediate CONGESTION Verified 06/30/16 06:47 Home Medications Medication Instructions Recorded Confirmed Type Hydrochlorothiazide 25 mg PO QPM ##0 02/08/14 02/05/25 History Pantoprazole (Pantoprazole Sodium) 40 mg PO BID ##0 06/30/16 02/05/25 History efinaconazole 10 % topical 1 applic topical DAILY 02/05/25 02/05/25 History solution with applicator (Jublia) montelukast 10 mg tablet 10 mg PO QAM 02/05/25 02/05/25 History propranolol 60 mg capsule,24 60 mg PO QAM 02/05/25 02/05/25 History hr,extended release sildenafil 20 - 60 mg PO USEASDIRECTD PRN 02/05/25 02/05/25 History Erectile Dysfunction Patient History Social History Smoking Status: Never smoker Preferred Language: Arabic Feels Safe at Home: Yes Review of Systems Review of Systems: All systems reviewed & are unremarkable except as noted in HPI & below Physical Exam Constitutional: WD/WN, vitals as above Respiratory: normal respiratory effort, lungs clear to auscultation Cardiovascular: Rate/Rhythm: regular rate and regular rhythm Gastrointestinal (Abdomen): mid epigastric tenderness to palpation, no guarding, soft, normal bowel sounds. Psychiatric: Orientation: alert and oriented x 3 Affect: euthymic affect Results & Data Vital Signs (Past 12 Hours) Vital Signs Temp Pulse Pulse Resp BP BP Pulse Ox 02/05/25 11:32 63 18 116/85 94 02/05/25 10:45 73 18 123/91 95 02/05/25 09:29 76 16 122/85 95 02/05/25 08:50 02/05/25 08:50 71 20 133/97 92 02/05/25 07:16 73 18 133/96 95 02/05/25 06:39 75 02/05/25 06:00 97.6 F 73 15 138/94 95 02/05/25 04:03 86 20 140/95 96 02/05/25 02:53 87 02/05/25 02:44 82 99 02/05/25 02:41 98.2 F 88 18 152/112 H 97 Pulse Ox O2 Del Method O2 Del Method 02/05/25 11:32 Room Air 02/05/25 10:45 Room Air 02/05/25 09:29 Room Air 02/05/25 08:50 95 Room Air 02/05/25 08:50 Room Air 02/05/25 07:16 Room Air 02/05/25 06:39 02/05/25 06:00 Room Air 02/05/25 04:03 Room Air 02/05/25 02:53 02/05/25 02:44 Room Air 02/05/25 02:41 Room Air Coding Level of Care Code 06178 IN/OBS CONSULT LVL 4,60M Diagnoses Elevated LFTs R79.89 Acute abdominal pain R10.9
[2025-02-05 14:53] LABS: Alanine Aminotransferase 483.0 U/L (7-52); Albumin Level 3.7 gm/dl (3.4-5.0); Alkaline Phosphatase 82.0 U/L (34-104); Bilirubin,Total 3.7 mg/dl (0.2-1.0); Total Protein 6.4 gm/dl (6.0-8.3)
[2025-02-05] MEDS: ACETAMINOPHEN 500 MG TAB PO PRN (15:09)
[2025-02-05] MEDS: THIAMINE HCL 100 MG TAB PO SCH (15:10)
--- NOTE | 2025-02-05 15:52 | Hospitalist Progress Note ---
Date of Service February 05, 2025 Assessment & Plan (1) Cholangitis: (2) Cystic duct calculus: (3) Benign essential tremor: (4) Alcohol dependence: Plan Patient presents with signs and symptoms consistent with possible acute cholangitis with imaging showing cystic duct calculi. Possible patient may have passed a stone. Continue antibiotics Monitor LFTs Communication with GI, sapphire for clear liquids tonight, n.p.o. after midnight, possible ERCP tomorrow if LFTs do not show significant improvement. Hold hydrochlorothiazide while oral intake decreased Continue other meds as ordered Admission and Anticipated Discharge Date Admission Date: February 05, 2025 Subjective Patient's abdominal pain slightly improved. Patient reports he drinks 4-6 beers per night. He states that he can go 1 or 2 nights without drinking any beer and not have any withdrawal symptoms. Patient has chronic benign hand tremor Physical Exam Physical Exam: Constitutional: Alert, nontoxic HEENT: Mucous membranes moist. Lungs: Clear to auscultation, decreased, no wheezes rales or rhonchi CV: S1-S2, regular Abdomen: Soft, minimal tenderness Extremities: No significant edema Neuro: No focal deficits Psych: Cooperative, normal mood Results & Data Results & Data Vital Signs (Past 12 Hours) Vital Signs Temp Pulse Pulse Resp BP BP Pulse Ox 02/05/25 15:16 36.7 C 76 18 132/87 94 02/05/25 14:29 65 02/05/25 12:15 73 02/05/25 11:32 63 18 116/85 94 02/05/25 10:45 73 18 123/91 95 02/05/25 09:29 76 16 122/85 95 02/05/25 08:50 02/05/25 08:50 71 20 133/97 92 02/05/25 08:00 66 02/05/25 07:16 73 18 133/96 95 02/05/25 06:39 75 02/05/25 06:00 36.4 C 73 15 138/94 95 02/05/25 04:03 86 20 140/95 96 Pulse Ox O2 Del Method O2 Del Method 02/05/25 15:16 Room Air 02/05/25 14:29 02/05/25 12:15 02/05/25 11:32 Room Air 02/05/25 10:45 Room Air 02/05/25 09:29 Room Air 02/05/25 08:50 95 Room Air 02/05/25 08:50 Room Air 02/05/25 08:00 02/05/25 07:16 Room Air 02/05/25 06:39 02/05/25 06:00 Room Air 02/05/25 04:03 Room Air Diagnostic Findings Reviewed imaging, laboratory and diagnostic studies. Pertinent findings as below. Repeat LFTs reviewed MRCP result reviewed. Cystic duct lithiasis
[2025-02-05] MEDS: PIPERACILLIN/TAZOBACTAM 4.5 GM/100 ML BAG IV ONE (16:46)
[2025-02-05] MEDS: ONDANSETRON INJ 2 MG/ML 2 ML VIAL IV PRN (17:24)
[2025-02-05] MEDS ORDERED: MoRPHine SULFATE 4 MG/ML 1 ML CARP\\VIAL IV PRN (18:15)
[2025-02-05] MEDS: PIPERACILLIN/TAZOBACTAM 4.5 GM/100 ML BAG IV SCH (20:10)
[2025-02-06] MEDS ORDERED: THIAMINE HCL 100 MG TAB PO SCH (09:00)
[2025-02-06 09:38] LABS: Hematocrit (blood only) 45.8 % (42.0-52.0); Hemoglobin 16.2 g/dL (14.0-18.0); Immature Granulocytes # (auto) 0.03 K/uL (0.01-0.20); Immature Granulocytes % (auto) 0.5 %; Mean Corpuscular Hemoglobin 32.7 pg (25.0-34.0); Mean Corpuscular Volume 92.5 fL (80.0-100.0); Platelet Count 183 K/uL (130-400); RDW Standard Deviation 43.2 fL (36.4-46.3); Red Blood Count 4.95 M/uL (4.70-6.10); White Blood Count 6.04 K/ul (4.8-10.8)
[2025-02-06 09:52] LABS: Alanine Aminotransferase 394.0 U/L (7-52); Albumin Globulin Ratio 1.6 (0.9-2); Albumin Level 4.0 gm/dl (3.4-5.0); Alkaline Phosphatase 78.0 U/L (34-104); Anion Gap 7.0 (3-11); Bilirubin,Total 2.6 mg/dl (0.2-1.0); Blood Urea Nitrogen 6.0 mg/dl (6-23); Calcium 8.9 mg/dl (8.6-10.3); Carbon Dioxide 26.0 mmol/L (21-32); Chloride 106.0 mmol/L (98-107); Creatinine Clr Calc Pharmacy 125.2 ml/min; Globulin 2.5 gm/dl (2.5-4.0); Glucose 97.0 mg/dl (70-99(Fasting)); Potassium 3.7 mmol/L (3.5-5.1); Sodium 139.0 mmol/L (136-145); Total Protein 6.5 gm/dl (6.0-8.3)
[2025-02-06 10:11] LABS: Hemoglobin A1C 5.0 % (4.5-5.6)
--- NOTE | 2025-02-06 11:40 | Gastroenterology Progress Note ---
Date of Service February 06, 2025 Assessment & Plan (1) Elevated LFTs: (2) Acute abdominal pain: Plan Patient is feeling significant improvement in symptoms. Case discussed with Dr. Ponce. - since LFTs are improving, can hold on ERCP for now. Will advance diet to low fat and see how he tolerates this. - will plan to repeat LFTs tomorrow morning to further trend. - recommend alcohol cessation. - Further recommendations to come with Supervising GI provider on medical rounds . Please see co-signature comments. Admission and Anticipated Discharge Date Admission Date: February 05, 2025 Supervising Physician Co-Signing Physician Notes Pain 90% plus improved. Liver test decreasing. Consistent with past stone. The source of this passed stone may be from the cystic duct remnant. MRCP suggest stone and debris within this. As surgery opinion about cystic duct surgery. Taking the cystic duct down closer to the common bile duct with stone removal. patient potentially at risk of recurrent common duct stones from the cystic duct. Cystic duct stone extraction endoscopic often not possible without lithotripsy. Patient is at risk of further common duct stones based on MRCP. If no surgical intervention and wishes to proceed with further evaluation and management of the cystic duct stones he will require tertiary referral. This is a more complicated involved ERCP plus or minus the need for lithotripsy not available here. Subjective Patient is feeling better today. no pain currently. LFTs trending downward. he has been NPO. 02/06/25 WBC 6.04, hgb 16.2, hct 45.8, plts 183, Na 139, K 3.7, BUN 6, Cr 0.77, T bili 2.6, D bili 0.6, AST 219, ALT 394. Review of Systems Review of Systems: All systems reviewed & are unremarkable except as noted in HPI & below Physical Exam Constitutional: WD/WN, vitals as above Respiratory: normal respiratory effort, lungs clear to auscultation Cardiovascular: Rate/Rhythm: regular rate and regular rhythm Gastrointestinal (Abdomen): normal bowel sounds, soft, nontender, no hepatosplenomegaly Psychiatric: Orientation: alert and oriented x 3 Affect: euthymic affect Results & Data Results & Data Vital Signs (Past 12 Hours) Vital Signs Temp Pulse Pulse Resp BP BP Pulse Ox 02/06/25 08:28 98.6 F 66 18 120/80 97 12/16/25 05:50 66 02/06/25 03:54 98.6 F 69 18 106/64 94 02/05/25 23:59 97.9 F 66 20 112/75 97 O2 Del Method 02/06/25 08:28 Room Air 02/06/25 05:50 02/06/25 03:54 Room Air 02/05/25 23:59 Room Air, CPAP PG Care Time/CCT Total # of Minutes Spent Total Time Spent with Patient: Total time spent is greater than 50% in coordination of care (as documented) at patient's floor/unit and/or counseling patient: Coding Level of Care Code 91407 SUB INP/OBS CARE 03/18MIN Diagnoses Elevated LFTs R79.89 Acute abdominal pain R10.9
--- NOTE | 2025-02-06 12:05 | Hospitalist Progress Note ---
Date of Service February 06, 2025 Assessment & Plan (1) Cholangitis: (2) Cystic duct calculus: (3) Benign essential tremor: (4) Alcohol dependence: Plan Patient significantly improved with conservative management Communication with GI, can advance diet, no plans for ERCP today Continue current antibiotics Advance diet Discontinue telemetry Patient may shower Continue other medications Anticipate if ongoing improvement in LFTs and symptoms and tolerates diet discharge home tomorrow on oral antibiotics. Admission and Anticipated Discharge Date Admission Date: February 05, 2025 Subjective Patient feeling significantly better. Abdominal pain improved. Feels like he would like to try and eat something more solid. No symptoms of alcohol withdr awal Physical Exam Physical Exam: Constitutional: Alert, sitting in chair, nontoxic HEENT: Mucous membranes moist. Lungs: Clear to auscultation, decreased, no wheezes rales or rhonchi CV: S1-S2, regular Abdomen: Soft, minimal epigastric tenderness, no guarding, no rigidity Extremities: No significant edema Neuro: No focal deficits Psych: Cooperative, normal mood Results & Data Results & Data Vital Signs (Past 12 Hours) Vital Signs Temp Pulse Pulse Resp BP Pulse Ox O2 Del Method 02/06/25 08:28 37.0 C 66 18 120/80 97 Room Air 02/06/25 05:50 66 02/06/25 03:54 37.0 C 69 18 106/64 94 Room Air Diagnostic Findings Reviewed imaging, laboratory and diagnostic studies. Pertinent findings as below. CBC within normal range Electrolytes stable Creatinine 0.77 LFTs reviewed and improved from previous
[2025-02-06 16:09] VITALS: O2SAT 95
--- NOTE | 2025-02-06 17:27 | Surgery Consultation ---
Date of Consultation February 06, 2025 Assessment & Plan (1) Cystic duct calculus: Plan Patient is a 49-year-old male with a past medical history significant for hypertension, GERD, KATHLEEN on CPAP, and a history of alcohol use disorder, who presents to [facility] emergency department on February 05, 2025 complaining of abdominal pain x 2 days with elevated LFTs and concerns for possible cholangitis on CT. MRCP yesterday shows no choledocholithiasis or biliary ductal dilation, but does suggest possible stones in the cystic duct remnant. Currently, the patient's abdominal pain has resolved, has no abdominal tenderness, and no evidence of perforation or peritoneal signs, so no indication for emergent surgical exploration at this time. Additionally, his LFTs are downtrending which suggests the possible passage of stones, so we feel that it would be reasonable to continue to trend his LFTs and serial abdominal exams. Unfortunately, surgical exploration to remove cystic duct stones can be exceedingly difficult and runs a high risk of damaging adjacent structures, so we feel that the patient would benefit most from outpatient GI referral to a tertiary center to be assessed for possible endoscopic retrieval of these cystic duct remnant stones vs possible lithotripsy. Supervising Physician Co-Signing Physician Notes Patient discussed with BRIA, labs and imaging reviewed, agree with above. Hist ory of laparoscopic cholecystectomy for acute cholecystitis by Dr. Joshi several years ago. Presented with pain, possible cholangitis on CT, suspected cystic duct remnant stones. MRCP again suspicious for cystic duct remnant stones. There does not appear to be a remnant gallbladder. As this represents a cystic duct remnant, surgical intervention would increase the risk of common bile duct injury, therefore would recommend evaluation as an outpatient at a tertiary center with hepatobiliary services and possibly advanced ERCP and lithotripsy services. No surgical intervention indicated emergently. History of Present Illness Reason for Consultation: cystic duct remnant stone Attending Physician: Ramón Thayer DO History of Present Illness Patient is a 49-year-old male with a past medical history significant for hypertension, GERD, KATHLEEN on CPAP, and a history of alcohol use disorder, who presents to [facility] emergency department on February 05, 2025 complaining of abdominal pain x 2 days. Patient localizes abdominal pain to the epigastric area, described as sharp and stabbing but also burning and significant pressure and twisting, severe in intensity, with no radiation of the pain and no obvious aggravating or alleviating factors. Patient states that this pain woke him up at 3 AM sleeping and seem to persist through the morning. He tried taking laxatives and had some relief, but then recurrence of his abdominal pain following morning and so he came to the emergency department for evaluation. Patient states that he had pain similar to this when he had his cholecystectomy many years ago, and mentions that the night prior to the onset of this pain he ate at a local restaurant, [employer], where he had steak and [place] fries, but other people had similar meals and did not feel ill. He denies any nausea or vomiting, no fevers or chills, no shortness of breath or dyspnea, denies constipation and states that after his laxatives he did have some loose diarrhea. Patient was evaluated in the emergency department and was hemodynamically stable and afebrile. His exam was significant for moderate epigastric tenderness, but without overt peritoneal signs. His labs were significant for a normal white blood cell count, but elevated LFTs with a total bilirubin of 3.6, AST 499, ALT 363, and alk phos at 75. His lipase was 27. He had a CAT scan of the abdomen pelvis that showed vague fat stranding adjacent to common bile duct that was concerning for possible cholangitis. He was then admitted to the medical service and gastroenterology was consulted. He had an MRCP later that day which showed no significant intra or extrahepatic biliary ductal dilation and no evidence of choledocholithiasis, however it suggested that they were possible stones within the cystic duct remnant, so general surgery was consulted. At the time of my interview the patient states that his abdominal pain had completely resolved. Allergies Allergy/AdvReac Type Severity Reaction Status Date / Time pollen extracts Allergy Intermediate CONGESTION Verified 06/30/16 06:47 Home Medications Medication Instructions Recorded Confirmed Type Hydrochlorothiazide 25 mg PO QPM ##0 02/08/14 02/05/25 History Pantoprazole (Pantoprazole Sodium) 40 mg PO BID ##0 06/30/16 02/05/25 History efinaconazole 10 % topical 1 applic topical DAILY 02/05/25 02/05/25 History solution with applicator (Jublia) montelukast 10 mg tablet 10 mg PO QAM 02/05/25 02/05/25 History propranolol 60 mg capsule,24 60 mg PO QAM 02/05/25 02/05/25 History hr,extended release sildenafil 20 - 60 mg PO USEASDIRECTD PRN 02/05/25 02/05/25 History Erectile Dysfunction Patient History Medical History Unspecified essential hypertension Other and unspecified hyperlipidemia GERD (gastroesophageal reflux disease) Surgical History Hx of cholecystectomy Social History Smoking Status: Never smoker Hx Alcohol Use: Yes Alcohol type: beer Hx Substance Use: No Preferred Language: Chinese Communication Ability: Effective Project Manager Senior Required: No Beliefs That Will Affect Care: None Current Living Situation: Spouse Feels Safe at Home: Yes Assistive Devices: CPAP Review of Systems Review of Systems: All systems reviewed & are unremarkable except as noted in HPI & below Physical Exam Physical Exam: Gen: Awake and alert, resting comfortably in bed in NAD CV: RRR PULM: non-labored breathing Abd: Abd obese and protuberant, soft, non-tender, non-distended ext: no edema to bilateral lower ext, SCDs in place, non-tender, feet warm and well perfusted Results & Data Vital Signs (Past 12 Hours) Vital Signs Temp Pulse Pulse Resp BP BP Pulse Ox 02/06/25 16:08 36.7 C 68 20 143/92 H 95 02/06/25 13:14 68 02/06/25 13:03 37.0 C 68 18 136/93 96 02/06/25 08:28 37.0 C 66 18 120/80 97 02/06/25 05:50 66 O2 Del Method 02/06/25 16:08 Room Air 02/06/25 13:14 02/06/25 13:03 Room Air 02/06/25 08:28 Room Air 02/06/25 05:[address] abd/pelvis: IMPRESSION: Hepatic steatosis.-stable. Status post-cholecystectomy. Subtle fat stranding is noted adjacent to the common bile duct- possibility of inflammatory etiology( could be cholangitis)- LFT correlation suggested.-new finding. Multiple small uncomplicated colonic diverticulosis.-stable. No other new interval abnormality since prior study. MRCP: IMPRESSION: 1. Status post cholecystectomy. 2. No intra or extrahepatic biliary ductal dilatation is seen and there is no evidence of choledocholithiasis. Infiltration around the common bile duct was better appreciated on today's CT scan. 3. There are likely stones within a cystic duct remnant. 4. The liver is enlarged and steatotic. 5. Additional findings as above. PG Care Time/CCT Total # of Minutes Spent Total Time Spent with Patient: Total time spent is greater than 50% in coordination of care (as documented) at patient's floor/unit and/or counseling patient: [place] [address] IN/OBS CONSULT LVL 5,80M Patient Type New Medical Decision Making Straight Forward Diagnoses Cystic duct calculus K80.20
[2025-02-07 07:39] LABS: Alanine Aminotransferase 269.0 U/L (7-52); Albumin Level 4.0 gm/dl (3.4-5.0); Alkaline Phosphatase 72.0 U/L (34-104); Anion Gap 9.0 (3-11); Bilirubin,Total 1.3 mg/dl (0.2-1.0); Blood Urea Nitrogen 8.0 mg/dl (6-23); Calcium 8.8 mg/dl (8.6-10.3); Carbon Dioxide 25.0 mmol/L (21-32); Chloride 106.0 mmol/L (98-107); Creatinine Clr Calc Pharmacy 114.7 ml/min; Glucose 108.0 mg/dl (70-99(Fasting)); Potassium 3.8 mmol/L (3.5-5.1); Sodium 140.0 mmol/L (136-145); Total Protein 6.5 gm/dl (6.0-8.3)
[2025-02-07 07:50] VITALS: PULSE 72; RESP 19; TEMP 98.2
[2025-02-07 09:38] VITALS: BP 136/93
--- NOTE | 2025-02-07 10:32 | Discharge Summary ---
Discharge Summary Date of Service February 07, 2025 Principal Dx & Hospital Course #1 = Principal Diagnosis (1) Cholangitis: (2) Cystic duct calculus: (3) Benign essential tremor: (4) Alcohol dependence: Plan Patient 49-year-old gentleman presented with acute onset of abdominal pain. Evaluation in the emergency room was concerning for cholangitis with elevated LFTs. Patient was admitted to the hospital. He was placed on IV antibiotics. GI consultation was obtained. MRCP was performed. There was no significant biliary ductal dilatation or signs of obstruction. However, there was some evidence of sludge and small stones in the cystic duct remnant. With hydration and antibiotics the patient's symptoms resolved and his LFTs steadily improved throughout his hospitalization. There was no indication for any further interventions from GI standpoint. With these residual stones in the cystic duct, surgical consultation was requested. They evaluated the patient. There is no indication for surgical intervention since patient has significantly improved and the risks of intervening on the cystic duct remnant was extremely high. They recommended patient pursue outpatient tertiary/[facility] care for possible advanced ERCP or lithotripsy. It was suspected that the patient most likely had a transient biliary duct obstruction from the sludge or stones from the cystic duct remnant. He passed these spontaneously when he had the acute pain. This also causes abnormal LFTs and possibly a mild cholangitis. The patient has responded to appropriate therapies. On the day of discharge patient's vital signs are stable. LFTs have continued to improve. He tolerated his diet. Abdominal pain had resolved. He can be discharged home completed short course of oral antibiotics and follow-up with outpatient providers. Patient's was on the phone at the time of discharge. I explained the diagnosis and plan of care. Answered all of her questions. She is agreeable for plans for discharge as well. Notes For Next Care Provider Consider outpatient referral to GI for advanced GI intervention on cystic duct retained stones versus lithotripsy Patient was encouraged to decrease his beer intake. Continue to encourage Medication Changes From Visit Augmentin for short course Zofran as needed Admission HPI Per Admitting Provider History obtained from patient, family, and records. Medical history significant for hypertension, reactive airway disease as per records, KATHLEEN on CPAP, GERD, alcohol abuse. Last confinement 2016 under General Surgery service for acute calculous cholecystitis status postcholecystectomy. 2 days history of intermittent achy upper abdominal pain which initially woke him up from sleep. Some nausea, no emesis. Some improvement after intake of home Linzess which resulted in bowel movement. Patient had recurrent pain yesterday. Admits to drinking alcohol at a social gathering. No improvement with antacid Rx. No fever, no chills. No chest pain, no SOB. Patient consulted ER for worsening symptoms. 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 Lungs: Clear to auscultation, decreased, no wheezes rales or rhonchi CV: S1-S2, regular Abdomen: Soft, nontender, nondistended Extremities: No significant edema Neuro: No focal deficits Psych: Cooperative, normal mood Updated Medication List Medication Instructions Recorded Confirmed Type Hydrochlorothiazide 25 mg PO QPM ##0 02/08/14 02/05/25 History Pantoprazole (Pantoprazole Sodium) 40 mg PO BID ##0 06/30/16 02/05/25 History efinaconazole 10 % topical 1 applic topical DAILY 02/05/25 02/05/25 History solution with applicator (Jublia) montelukast 10 mg tablet 10 mg PO QAM 02/05/25 02/05/25 History propranolol 60 mg capsule,24 60 mg PO QAM 02/05/25 02/05/25 History hr,extended release sildenafil 20 - 60 mg PO USEASDIRECTD PRN 02/05/25 02/05/25 History Erectile Dysfunction amoxicillin 875 mg-potassium 1 tab PO BID 5 days #10 tabs 02/07/25 Rx clavulanate 125 mg tablet ondansetron HCl 4 mg tablet 4 mg PO Q6H PRN nausea and 02/07/25 Rx vomiting #20 tabs Hospital Stay Data Consultations 02/05/25 05:17 ED Decision to Admit Stat 02/05/25 08:11 Consult Gastroenterology Routine 02/06/25 16:16 Consult General Surgery Routine Diagnostic Imagining Performed 02/05/25 02:49 CT abd pelvis IV con only Stat 02/05/25 06:23 MR MRCP Stat Reviewed imaging, laboratory and diagnostic studies. Pertinent findings as below. Electrolytes within normal range Creatinine 0.84 Total bilirubin 1.3, improved Direct bilirubin 0.3, improved AST 99, improved ALT 269, improved Alk phos 72 WBCs 6.04 Hemoglobin 16.2 Platelets of 183 Hemoglobin A1c 5.0% Pending Results Patient Have Any Pending Studies at Discharge: No Discharge Instructions Given to Patient (Per Discharging Provider) Follow-up with your PCP, discuss outpatient GI consultation or possible referral to a tertiary care center with advanced GI capabilities including advanced endoscopy or lithotripsy for your cystic duct stones. Strongly recommend you decrease your beer intake Total Time Total Time Spent Total Time Spent (In Minutes): 33
== END 2025-02-07 09:56 | disposition home or self-care (01) | DRG 445 ==
LOC: ED 02:34 → EDINP 05:14 → 2W 08:12